=== PATIENT | male | born 1955 | race Caucasian/White ===

== ENCOUNTER 2022-04-01 13:59 | Outpatient (RCR) | payer MEDICARE, SELFPAY ==
--- OUTSIDE RECORDS SUMMARY | 2022-03-15 11:08 | XMS_ITS | Continuity of Care Document ---
:1955 Author Care Team Providers Name Role Phone MD Lulu Attending Physician MITCHEL Fuentes Primary Care Physician Chief Complaint and Reason for Visit Chief Complaint Chest Pain Reason for Visit [id number] Health Concerns Concerns See notes for health concerns that were reviewed. Allergies, Adverse Reactions, Alerts No known allergies Social History Smoking Status Status Start Date End Date Date of Observat ion Ex-smoker (finding) February 22 12:09pm Observation Status Observation Response Date of Response Smoker April 03, 2017 2:31 pm Alcohol consumption of more April 03 017 2:31pm than four drinks per week Does not use illicit drugs January 05 020 7:29am History provided by Patient January 18, 2022 1:3 9pm Where do you live? Own home/apt January 18, 2022 1:3 9pm With whom do you live? Spouse January 18, 2022 1:39pm Additional Data Assigned Sex Male Problems Active Problems Medical Problem Onset Date Status Radiation-induced esophagitis Active COPD (chronic obstructive pulmonary Acti ve disease) Pulmonary hypertension Active Aspiration pneumonia Active Esophageal cancer Active Nicotine dependence Active Hypokalemia Active Chest pain Active Inactive/Resolved Problems Medical Problem Onset Date Status Angioedema Resolved HTN (hypertension) Resolved Cataracts, bilateral Resolved Depression with anxiety Resolved CAD (coronary artery disease) Resolved History of myocardial infarction Resolve d Dyslipidemia Resolved Pulmonary nodule Resolved Personal history of colonic polyps Resol tori Emphysema of lung Resolved Esophageal cancer Resolved Adenocarcinoma of esophagus 2021 Resolved History of coronary artery stent Resolve d placement History of hemorrhoidectomy Resolved History of back surgery Resolved History of colonoscopy with Resolved polypectomy Medications Medication Status Dose Units Route Directions Qty Days Start End Ins tructions Date Date Acetaminophen Active 1-2 TAB PO Every 4 February /Hydrocodone Hours as , Bitart needed 2021 (Hydrocodone- 11:30am Acetaminophen ) 5 Mg/325 Mg TAB Antacid/Diphe Active 10 ML SWISH/ Three Times n/Lido SWAL Daily Before Meals as needed Bupropion Hcl Active 75 MG PO Twice A Day January (Bupropion 3rd, Hydrochloride 2021 ) 75 Mg TAB 8:09am Clopidogrel Active 75 MG PO Daily September Bisulfate , (Plavix) 75 2021 Mg TAB 10:30am Cyanocobalami Active 500 MCG PO Daily 100 n (Vitamin B 12) 500 Mcg TAB Fentanyl Active 1 PATCH TD Every 72 01 March (Fentanyl Hours , Patch) 25 2021 Mcg/Hr PATCH 11:28am Fluticasone-U Active 1 AER INH Daily September meclidinium-V , (Trelegy 2021 Ellipta 10:30am 100-62.5-25 Mcg/Inh) 1 Aer AER Ibuprofen Active 400 MG PO Every February (Ibuprofen Hours as , Suspension) needed 2021 100 Mg/5 Ml 11:29am PAUL Magic Active 5 ML SWISH/ Four Times February SWISH A ND SPIT Mouthwash SWAL Daily as January COM POUND IF FIRST PRODUCT NOT COVERED (Lidocaine/Be needed 2021 nadryl/Maalox 2:13pm ) (First-Mouthw xin Blm) Blm PAUL Ondansetron Active 4 MG PO Every 6 18 February Hcl Hours as , (Ondansetron needed 2021 Odt) 4 Mg TAB 1:07pm Pantoprazole Active 40 MG PO Daily Sodium (Pantoprazole Sodium Dr) 40 Mg TAB Pantoprazole Active 40 MG PO Daily February Sodium 7th, (Protonix) 40 2021 Mg TABEC 8:20am Potassium Active 20 MEQ PO Three Times February kasia ce tablet in plastic med cup and add 2 tsp (10-15ml) of Chloride A Day , water and a llow tablet to melt. Mix in pudding, yogurt, 2021 mashed potatoe s, ice cream. Do NOT crush 12:13pm Rosuvastatin Active 40 MG PO Bedtime September Calcium 2021 10:29am Sennosides-Do Active 1 TAB PO Twice A Day 60 January cusate Sodium as needed , (Stool 2021 Softener/Laxa 8:09am tive 50-8.6 Mg) 1 Tab TAB Accupril Disconti March 2:07pm Acetaminophen Disconti 1-2 TAB PO Every January /Hydrocodone nued Hours as , , Bitart needed 2021 2021 (Hydrocodone- 7:05am 10:41a Acetaminophen m ) 5 Mg/325 Mg TAB Acetaminophen Disconti 1-2 TAB PO Every January /Hydrocodone nued Hours as , Bitart needed 2021 (Hydrocodone- 7:04am Acetaminophen ) 5 Mg/325 Mg TAB Acetaminophen Disconti Unknow PO Every December /Hydrocodone nued n Dose Hours as , Bitart needed 2021 (Hydrocodone- 3:08pm Acetaminophen ) Unknown Strength TAB Aspirin Disconti 81 MG PO Daily January 8:27am Bupropion Hcl Disconti 150 MG PO Twice A Day December (Bupropion nued 7th, 3rd, Hcl Xl (2021 Hr)) 150 Mg 9:57am 8:09am TABCR Bupropion Hcl Disconti 150 MG PO Daily November (Bupropion nued 3rd, 7th, Hcl Xl (2021 Hr)) 150 Mg 9:35am 9:57am TABCR Carica Papaya Disconti 1 OR As Needed December (Papaya) CHW ed 2021 3:08pm Cefuroxime Disconti 250 MG PO Twice A Day January Axetil nued , , 2021 2021 10:56am 7:04am Cholesterol Disconti March 2:07pm Clopidogrel Disconti 75 MG PO Daily Septemberuar Bisulfate nued , y (Plavix) 2021, Mg TAB 8:34am 2021 10:30a m Clopidogrel Disconti 75 MG PO Daily Sepuar Bisulfate nued r , y (Plavix) 2020 17, Mg TAB 1:28pm 2021 8:34am Clopidogrel Disconti 75 MG PO Daily April Bisulfate nued , er (Plavix) 75 2021 06, Mg TAB 6:39pm 2020 1:28pm Clopidogrel Disconti 75 MG PO Daily April Bisulfate nu, (Plavix) 75 2020 Mg TAB 6:39pm Fentanyl Disconti 1 PATCH TD Every 72 February (Fentanyl nued Hours 23rd, Patch) 50 2021 Mcg/Hr PATCH 11:28a m Fentanyl Disconti 1 PATCH TD Every 72 01 March (Fentanyl nued Hours 9, Patch) 75 2021 Mcg/Hr PATCH 11:30a m Fentanyl Disconti 1 PATCH TD Every 72 January (Fentanyl nued Hours 25th, 25th, Patch) 50 2021 2021 Mcg/Hr PATCH 8:13am 10:41a m Fentanyl Disconti 1 PATCH TD Every 72 January (Fentanyl nued Hours 12th, 25th, Patch) 75 2021 2021 Mcg/Hr PATCH 8:26am 8:12am Fentanyl Disconti 1 PATCH TD Every 72 January (Fentanyl nued Hours 4th, 24th, Patch) 100 2021 2021 Mcg/Hr PATCH 7:03pm 7:04am Fentanyl Disconti 1 PATCH TD Every 72 December (Fentanyl nued Hours , 29th, Patch) 12 2021 2021 Mcg/Hr TDSY 4:06pm 3:08pm Fentanyl Disconti 1 PATCH TD Every 72 December (Fentanyl nued Hours , , Patch) 2021 Mcg/Hr TDSY 12:49pm 4:05pm Fluticasone-U Disconti 1 AER INH Daily September meclidinium-V nued , y vikram (legy 2021, Ellipta 8:34am 2021 100-62.5-25 10:30a Mcg/Inh) 1 m Aer AER Fluticasone-U Disconti 1 AER INH Daily April meclidinium-V nued , y vikram (legy 2020, Ellipta 6:12pm 2021 100-62.5-25 8:34am Mcg/Inh) 1 Aer AER Fluticasone-U Disconti 1 AER INH Daily April meclidinium-V nued y , , vikram ([facility] 2020 2020 Ellipta 4:43pm 4:16pm 100-62.5-25 Mcg/Inh) 1 Aer AER Fluticasone-U Disconti 1 AER INH Daily March meclidinium-V nued 9, y vikram (2019, Ellipta 8:31am 2020 100-62.5-25 12:11p Mcg/Inh) 1 m Aer AER Fluticasone-U Disconti 1 AER INH Daily December meclidinium-V nued 16, 9, vikram (2019 Ellipta 3:30pm 8:31am 100-62.5-25 Mcg/Inh) 1 Aer AER Hydroxyzine Disconti 25 MG PO Every 4 January Pamoate nued Hours as 3rd, , needed 2021 2021 8:09am 10:41a m Ibuprofen Disconti 400 MG PO Every 6 January (Ibuprofen nued Hours as 24th, 3rd, Suspension) needed 2021 2021 100 Mg/5 Ml 10:55am 11:29a PAUL m Ibuprofen Disconti 400 MG PO Every 6 January (Ibuprofen nued Hours as 3rd, 24th, Suspension) needed 2021 2021 100 Mg/5 Ml 8:09am 10:55a PAUL m Ibuprofen Disconti 600 MG PO Every 6 19 January nued Hours as 29, needed 2021 3:08pm Influenza Disconti 0.7 ML [facility] [address] [facility] [facility], er Split High 2020 8th, (Fluzone 1:31pm 2020 High-Dose Pf 1:38pm 2020 0.7 Ml) 1 Inj INJ Influenza Disconti 0.7 ML IM Once September Virus Vac nued 15th, y Split High 2020 15th, (Fluzone 10:23am 2020 High-Dose Pf 10:2019 0.7 Ml) m 1 Inj INJ Magic Disconti 5 ML SWISH/ Four Times February SWISH AND SPIT Mouthwash nued SWAL Daily as , , JANUARY COM POUND IF FIRST PRODUCT NOT COVERED (Lidocaine/Be needed 2021 2021 nadryl/Maalox 12:12pm 2:13pm ) (First-Mouthw xin Blm) Blm PAUL Magic Disconti 5 ML SWISH/ Four Times January SWISH AND SPIT Mouthwash nued SWAL Daily as , , JANUARY COM POUND IF FIRST PRODUCT NOT COVERED (Lidocaine/Be needed 2021 2021 nadryl/Maalox 8:09am 12:12p ) m (First-Mouthw xin Blm) Blm PAUL Magnesium Disconti 400 MG PO Daily December Oxide nued 2021 3:08pm Morphine Disconti 10 MG PO Every 4 January Sulfate nued Hours as , 9, (Morphine needed 2021 2021 Oral Soln) 10 10:48am 8:27am Mg/5 Ml ML Nicotine Disconti 1 PATCH TD Daily 02 February (Nicotine nued , Transdermal 2021 Syst) 21 10:41a Mg/24 Hr DIS m Nicotine Disconti 1 PATCH TD Daily January (Nicotine nued , , Transdermal 2021 2021 Syst) 21 11:04am 10:41a Mg/24 Hr DIS m Omeprazole Disconti 20 MG PO Daily 19 January nued 2021 3:08pm Ondansetron Disconti 4 MG PO Every 6 September 1 tab by mouth 30-60 minutes before colon prep; then every Hcl nued Hours as 17th, 3rd, 6 hours as needed. (Ondansetron needed 2021 2021 Odt) 4 Mg TAB 8:37am 9:20am Potassium Disconti 25 MEQ OR Daily January mix 1 t ab Bicarbonate nued , , with at least (Klor-Con/Ef) 2021 2021 4 ounc es of 25 Meq TAB 12:00pm 9:34am water. take with food. Potassium Disconti 25 MEQ OR Daily January Bicarbonate nued , , (Klor-Con/Ef) 2021 2021 25 Meq TAB 11:59am 12:00p m Potassium Disconti 20 MEQ PO Twice A Day February p lace tablet in plastic med cup and add 2 tsp (10-15ml) of Chloride nued , , water and a llow tablet to melt. Mix in pudding, yogurt, 2021 2021 mashed potatoe s, ice cream. Do NOT crush 10:15am 12:13p m Potassium Disconti 20 MEQ PO Daily January place t ablet in plastic med cup and add 2 tsp (10-15ml) of Chloride nued , , water and a llow tablet to melt. Mix in pudding, yogurt, 2021 2021 mashed potatoe s, ice cream. Do NOT crush 4:14pm 10:15a m Potassium Disconti 20 MEQ PO Daily January place t ablet in plastic med cup and add 2 tsp (10-15ml) of Chloride nued , water and a llow tablet to melt. Mix in pudding, yogurt, 2021 2021 mashed potatoe s, ice cream. Do NOT crush 9:34am 4:14pm Prednisone Disconti 40 MG PO Daily 6 March nued , 2016 10:55am 2:07pm Prochlorperaz Disconti 10 MG PO Every 4-6 November PRN ine Maleate nued Hours as 7th, 3rd, Nause a/vomiti needed for 2021 2021 ng Nausea/Vomi 2:36pm 11:18a ting m Prochlorperaz Disconti 10 MG PO Every 4-6 November PRN ine Maleate nued Hours as 3rd, 7th, Nause a/vomiti needed for 2021 2021 ng Nausea/Vomi 1:26pm 2:36pm ting Quinapril Hcl Disconti 20 MG PO Bedtime September (Quinapril nued 24, , Hydrochloride 2021 2021 ) 20 Mg TAB 10:30am 11:29a m Quinapril Hcl Disconti 20 MG PO Bedtime September r (Quinapril nued , y Hydrochloride 2021, ) 20 Mg TAB 8:34am 2021 10:30a m Rosuvastatin Disconti 40 MG PO Bedtime Septemberr Calcium nued , y 2021, 8:34am 2021 10:29a m Simvastatin Disconti 80 MG PO Bedtime nued y 2020 11:56a m Immunizations Immunization Event Date Not Given Dose T[employer] Lot Vac cine Reason Number Number Informatio n Statement (VIS) Deta il Influenza September 22 SANOFI [id number] 2020 Influenza August 23 SANOFI [id number] 2020 Tetanus/Diptheri July 23 a 2014 Tdap December 18 (adolescent/adul 2005 t) Procedures Procedure Date Performed Status PET IMAGE W/CT SKULL-THIGH March 14, 2022 completed Positron emission tomography March 14, 2022 active from base of cranium to mid-thigh Relevant Diagnostic Tests and/or Laboratory Data Laboratory Results Test Date/Time Result Interpretation Reference Result Comment Performing Range Site White Blood February 28, 7.27 5.00-10.00 [facility] Count 2021 [address] [facility] 10:36am [place] [address] Red Blood Count February 28, 3.22 4.32-5.72 [facility] 2021 [address] [facility] 10:36am [facility] [address] Hemoglobin February 28, 11.5 13.5-17.5 [facility] 2021 [address] [facility] 10:36am [place] [address] Hematocrit February 28, 34.2 38.8-50.0 [facility] 2021 [address] [facility] 10:36am [place] [address] Mean February 28, 106 81-95 [facility] Corpuscular 2021 [address] [facility] Volume 10:36am [place] [address] Mean February 28, 36 27-34 [facility] Corpuscular 2021 [address] [facility] Hemoglobin 10:36am [facility] [place] [address] Mean February 28, 34 32-36 [facility] Corpuscular 2021 [address] [facility] Hemoglobin 10:36am [facility] [place] [address] Concent Platelet Count February 28, 166 150-450 [facility] 2021 [address] [facility] 10:36am [place] [address] RDW Coefficient February 28, 15.9 11.5-15.3 [facility] of Variation 2021 [address] [facility] 10:36am [place] [address] Neutrophils (%) February 28, 67.9 50.0-70.0 [facility] (Auto) 2021 [address] [facility] 10:36am [place] [address] Lymphocytes (%) February 28, 22.3 25.0-45.0 [facility] (Auto) 2021 [address] [facility] 10:36am [place] [address] Monocytes (%) February 28, 9.1 0.00-11.0 [facility] (Auto) 2021 [address] [facility] 10:36am [place] [address] Eosinophils (%) February 28, 0.3 0.0-7.0 [facility] (Auto) 2021 [address] [facility] 10:36am [place] [address] Basophils (%) February 28, 0.1 0.0-3.0 [facility] (Auto) 2021 [address] [facility] 10:36am [place] [address] Immature February 28, 0.3 [facility] Granulocyte % 2021 1999 [facility] (Auto) 10:36am [place] [address] Neutrophils # February 28, 4.94 1.70-7.00 [facility] (Auto) 2021 [address] [facility] 10:36am [place] [address] Lymphocytes # February 28, 1.62 0.90-2.90 [facility] (Auto) 2021 [address] [facility] 10:36am [place] [address] Monocytes # February 28, 0.66 0.30-0.90 [facility] (Auto) 2021 [address] [facility] 10:36am [place] [address] Eosinophils # February 28, 0.02 0.00-0.50 [facility] (Auto) 2021 [address] [facility] 10:36am [place] [address] Basophils # February 28, 0.01 0.00-0.20 [facility] (Auto) 2021 [address] [facility] 10:36am [place] [address] Immature February 28, 0.02 [facility] Granulocyte # 2021 1999 [facility] (Auto) 10:36am [place] [address] Random Glucose March 11, 94 60-115 [facility] 2021 [address] [facility] 10:35am [place] [address] Blood Urea March 11, 7 7-30 [facility] Nitrogen 2021 [address] [facility] 10:35am [place] [address] Creatinine March 11, 0.4 0.5-1.5 [facility] 2021 [address] [facility] 10:35am [place] [address] Estimated March 11, 115.499 [facility] Creatinine 2021 1999 [facility] Clearance 10:35am [place] [address] Sodium Level March 11, 139 135-149 [facility] 2021 [address] [facility] 10:35am [place] [address] Potassium Level March 11, 4.0 3.6-5.1 [facility] 2021 [address] [facility] 10:35am [place] [address] Chloride Level March 11, 103 96-114 [facility] 2021 [address] [facility] 10:35am [facility] [address] Carbon Dioxide March 11, 20-32 [facility] Level 2021 [address] [facility] 10:35am [place] [address] Calcium Level March 11, 8.2 8.4-10.6 [facility] 2021 [address] [facility] 10:35am [facility] [address] Total Protein February 28, 5.9 6.0-8.3 The use of [facility] 2021 Eltrombopag, a [address] [facility] 10:36am [facility] [place] [address] stimulant used to treat thrombocytopenia and aplastic anemia, interferes with this measurement of total protein. A 5% bias has been observed. Albumin February 28, 3.2 3.3-5.0 [facility] 2021 [address] [facility] 10:36am [place] [address] Total Bilirubin February 28, 0.5 0.1-1.5 [facility] 2021 [address] [facility] 10:36am [place] [address] Aspartate Amino February 28 12-35 [facility] Transf 2021 [address] [facility] (AST/SGOT) 10:36am [place] [address] Alanine February 28 4-50 [facility] Aminotransferas 2021 [address] [facility] e (ALT/SGPT) 10:36am [place] [address] Alkaline February 28, 40-150 [facility] Phosphatase 2021 [address] [facility] 10:36am [place] [address] Vital Signs Vital Reading Result Reference Range Collection Date/ Time Height 66.500 [in_i] February 22, 2022 1 0:55am Height 168.91 cm February 22, 2022 1 0:55am Weight 98.00 [lb_av] February 22, 2022 1 0:55am Weight 44.179220 kg February 22, 2022 1 0:55am Body Temperature 97.6 [degF] February 22, 2022 10:55am Body Temperature 36.44 Thea February 22, 2022 10:55am BP Systolic 106 mm[Hg] February 22, 2022 1 0:55am BP Diastolic 55 mm[Hg] February 22, 2022 1 0:55am Heart Rate 95 /min February 22, 2022 1 0:55am Respiratory rate 14 /min February 22, 2022 10:55am Body surface area 1.49 m2 February 22, 2022 10:55am BMI (Body Mass Index) 15.6 kg/m2 February 22, 2022 10:55am Advance Directives Advance Directive Response Recorded Date/Time Has patient completed a Yes February 22, 2022 1 2:09pm Health Care Directive? Insurance Providers Guarantor Duy Cohen Address [facility] [address] [place] [address] Contact Info. Home Phone: Payer Policy Id Coverage Id Subscriber's Subscriber Id Effective E xpiration Name Date Date Blue [id number] Duy Cohen Medicare Ppo [id number] Encounters Encounter Location(s) Arrival/Admit Date Discharge/Depart Date Provider(s) Registered [place] March 14, 2022 Marci Lawson MD [facility] 2:52pm Registered [place] March 11, 2022 Marci Lawson MD [facility] 7:12am Registered [facility] February 22, 2022 [facility] 11:00am [place] Office Visit [place] February 22, 2022 [facility] 11:[facility]am [place] Recent Diagnosis Onset Date Esophageal cancer Radiation-induced esophagitis Hypoxia COPD (chronic obstructive pulmonary disease) HTN (hypertension) Functional Status Observation Response Date Recorded Functional Status Independent January 23, 2022 4:45pm Mental Status Observation Response Date Recorded Cognitive Status Alert January 23, 2022 4:45pm Oriented January 23, 2022 4:45pm Assessments Reviewed concerns and medications. I recommend we stop blood pressure medicaion as his blood pressure is low. He is fatigued and has hypokalemia. He is following cancer infusion center. Ibuprofen and hydrocodone refilled. Referral for home health for oxygen placed. We will need to fax records from the hospital for coverage for oxygen. He will keep me updated with his blood pressure readings next week. EP level 4 Plan of Treatment Future Tests Future scheduled test information is unavailable Pending Tests Pending diagnostic test information is unavailable Future Visits Future appointment information is unavailable Referrals to Other Providers Reason for Referral Start Provider Provider Contact Provider Address Referral Date Information Christian Fuentes Work Phone: DEMIAN RODRIGUEZ [place] [address] [place] [phone] Future Procedures Future procedure information is unavailable Future Medications Future medication information is unavailable Patient Instructions Attached Discharge Info Bupropion (By mouth) Hydroxyzine (By mouth) Morphine, Rapid Release (By mouth) (Roxa nol) Fentanyl (Absorbed through the skin) (Du ragesic, Ionsys, Novaplus... Lidocaine (Into the mouth) (Xylocaine, F irst-BXN Mouthwash,... Ibuprofen (By injection) (Caldolor, Neop rofen) Aspiration Pneumonia (DC) COPD (Chronic Obstructive Pulmonary Dise ase) (DC) Esophagitis (AC)
[2022-04-01 14:29] LABS: Basophils Absolute Auto 0.01 K/uL (0.00-0.30); Basophils Percent Auto 0.1 % (0.0-3.0); Eosinophils Absolute Auto 0.01 K/uL (0.00-0.50); Eosinophils Percent Auto 0.1 % (0.0-7.0); Hematocrit 38.4 % (37.0-53.0); Hemoglobin* 12.4 gm/dL (13.5-17.5); Immature Granulocytes Abs Auto 0.04 K/uL (0.00-0.30); Lymphocytes Absolute Auto 1.71 K/uL (0.90-2.90); Lymphocytes Percent Auto 23.3 % (20-44); Mean Corpuscular HGB Conc 32 gm/dL (32-36); Mean Corpuscular Hemoglobin 37 pg (26-34); Mean Corpuscular Volume 114 fL (80-100); Monocytes Percent Auto 11.2 % (0.0-11.0); Neutrophils Absolute Auto 4.75 K/uL (1.7-7.0); Neutrophils Percent Auto 64.8 % (42.0-72.0); Platelet Count* 206 K/uL (140-440); RDW Coefficient of Variation % 13.5 % (11.5-15.5); Red Blood Count 3.38 m/uL (4.30-5.90); White Blood Count* 7.34 K/uL (4.50-11.00)
[2022-04-01 14:34] LABS: Slide Review Reflex No
[2022-04-01 14:44] LABS: Albumin* 3.8 g/dL (3.3-5.0); Chloride* 106 mmol/L (96-114); Potassium* 4.3 mmol/L (3.6-5.1); Sodium* 139 mmol/L (135-149)
[2022-04-01 14:46] LABS: Bilirubin Total* 0.2 mg/dL (0.1-1.5); Creatinine* 0.4 mg/dL (0.5-1.5); Est. Creatinine Clearance* 46.68; Estimated Glomerular Filt Rate 119.58
[2022-04-01 14:47] LABS: Alanine Aminotransferase* 11 U/L (4-50); Alkaline Phosphatase* 87 U/L (40-150); Aspartate Amino Transferase* 23 U/L (12-35); Blood Urea Nitrogen* 16 mg/dL (7-30); Carbon Dioxide* 29 mmol/L (20-32); Glucose* 85 mg/dL (60-115); Total Protein* 6.9 g/dL (6.0-8.3)
--- NOTE | 2022-05-01 09:04 | ONC.NURNOTE ---
Addendum entered by Vashti Mixon RN 05/02/22 15:29: Potassium refilled by Payton Collins APRN. Confirmed with [facility] that the received the prescription and updated Ailyn, pt's . Original Note: Patient called to ask for a Potassium refill. Left a note for Dr. Lawson to address tomorrow. Pt aware.
--- NOTE | 2022-05-03 16:34 | ONC.NURNOTE ---
Called in prescription for Klor-con tabs 20 mEq TID #90 to [facility] [place], 0 refills. 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 Ongoing prescription with refills sent via Payton Collins APRN to pt's preferred pharmacy, [facility].
== END 2022-04-21 23:59 | disposition home or self-care (01) ==
LOC: CCIC 13:59
PROVIDERS: Clinical Nurse Specialist; PCP Physician Assistant Medical; Visit Provider Internal Medicine Medical Oncology
DX: C15.5 Malignant neoplasm of lower third of esophagus (principal); K20.80 Other esophagitis without bleeding; T66.XXXA Radiation sickness, unspecified, initial encounter
CPT/HCPCS: 36415; 80053; 85025; 99212; 99214; 99215

== ENCOUNTER 2022-05-16 14:04 | Outpatient (CLI) | payer MEDICARE, SELFPAY | END 2022-05-16 14:05 | disposition home or self-care (01) | LOC: FRMREF 05-20 15:48 | PROVIDERS: PCP Physician Assistant Medical; Visit Provider Physician Assistant Medical | DX: Z79.899 Other long term (current) drug therapy (principal); C15.9 Malignant neoplasm of esophagus, unspecified; F51.01 Primary insomnia | CPT/HCPCS: 80048 ==

== ENCOUNTER 2022-06-20 13:05 | Outpatient (CLI) | payer MEDICARE, SELFPAY ==
--- NOTE | 2022-06-20 13:15 | CRLHL7_ITS ---
For Patients: As a result of the 21st Century Cures Act, medical imaging exams and procedure reports are released immediately into your electronic medical record. You may view this report before your referring provider. If you have questions, please contact your health care provider. EXAM: PET-CT SKULL BASE TO THIGH CLINICAL INFORMATION: 67-yo male with a history of metastatic esophageal carcinoma. Prior definitive chemoradiation completed 01/10/2022. Patient is referred for further characterization/response assessment. TECHNIQUE: Radiopharmaceutical: 12.66 mCi of 18F-FDG Intravenous injection site: Left hand Uptake time: 58 minutes Blood glucose level at the time of injection: 90 mg/dL Field of view: Skull base to mid-thighs Intravenous contrast: Not administered Oral contrast: Not administered CT protocol: The low-dose, free-breathing, noncontrast CT performed as part of this study is designed for the purposes of attenuation correction and lesion localization, and it is neither sufficient, nor it should be substituted for diagnostic purposes. COMPARISON: PET-CT 03/14/2022 FINDINGS: Physiologic background liver standardized uptake value (SUV mean and SUV max) reported for comparison between PET studies: 2.5 and 3.0. Visualized head and neck: Physiologic uptake in the visualized portions of the extraocular muscles, and salivary glands. Heavy carotid calcification. Head and neck lymph nodes: No abnormal uptake. Lungs: A subcentimeter left lower lobe nodule with mild uptake and a bandlike area of nodular uptake in the left upper lobe extending laterally to the pleural surface are new. Otherwise interval decreased size and uptake of bilateral metabolically active upper lobe pulmonary nodules. For example: -new left lower lobe pulmonary nodule with irregular margins, 0.5 cm, SUV max 3.3 (series 202, image 94). -decreased size and uptake lateral right upper lobe nodule, 0.8 cm, SUV max 3.4 (series 2, image 67). Previously 1.2 cm, SUV max 10.9. -decreased size and uptake right upper lobe nodule, 0.4 cm, SUV max 1.4 (series 202, image 77). Previously 0.6 cm, SUV max 8.6. -new left upper lobe nodular density with bandlike uptake extending laterally to the pleural surfaces, 0.7 cm, SUV max 4.4 (series 2, image 61). Thoracic lymph nodes: No new or progressive metabolically active thoracic or axillary lymphadenopathy. Other chest findings: Similar small pericardial fluid. Diffuse coronary vascular and thoracic aortic calcifications. -residual circumferential distal esophageal wall thickening with mildly increased uptake though overall decreased craniocaudal extent, SUV max 7.7 (fused PET-CT image 121). Previously SUV max 6.0. Current craniocaudal extent of uptake in the distal esophagus approximately 6.5 cm. Previously 9.0 cm. Hepatobiliary: No abnormal uptake. Spleen: No abnormal uptake. Pancreas: No abnormal uptake. Adrenals: No abnormal right adrenal uptake. Mild increased left adrenal uptake does not exceed physiologic liver, SUV max 2.6. Nonspecific. Kidneys and bladder: No abnormal uptake. Physiologically excreted tracer activity within the renal collecting system and urinary bladder. Bowel and peritoneum: No suspicious bowel uptake or abnormality. Colonic diverticulosis without inflammatory change. Pelvic organs: No abnormal uptake. Mild prostate enlargement. Abdominopelvic lymph nodes: No hypermetabolic abdominopelvic lymph nodes. Musculoskeletal, soft tissues, skin: Interval increased size of a lytic left hip intertrochanteric lesion with several new skeletal metastases involving the left clavicle, spine and pelvis/sacrum. For example: -new medial left clavicular head lesion, SUV max 8.0. -new right L4 superior articular facet lesion, SUV max 5.3. -new left sacral ala lesion borders the SI joint, SUV max 2.8. -new posterior superior right acetabular lesion, SUV max 2.8. -increased size and uptake of a lytic intertrochanteric left hip lesion with adjacent cortical erosion, SUV max 9.8. Previously 3.4. -relative photopenia within the lower thoracic and upper lumbar spine is most consistent with fatty marrow replacement in the setting of prior radiation therapy. -posttraumatic change with mild uptake involves the adjacent right anterior 8th and 9th ribs. Other: Diffuse aortoiliac atherosclerotic vascular calcifications. IMPRESSION: 1. Residual distal esophageal wall thickening with mildly increased uptake and overall decrease craniocaudal extent is considered indeterminate, possibly secondary to post therapy effects. Residual viable disease not entirely excluded. No progressive or new metabolically active mediastinal lymphadenopathy. 2. New left lower lobe tracer avid pulmonary nodule and a nodular area of bandlike uptake in the left upper lobe compared to prior. Otherwise decreased size and uptake of bilateral small upper lobe pulmonary metastatic nodules. 3. Increased size and uptake of a lytic left hip metastases with several new tracer avid metastatic lesions in the left clavicle, spine and pelvis/sacrum. 4. No distant sites of tracer at disease in the neck, solid organs of the abdomen or abdominopelvic lymph nodes. 5. Other nonacute findings as detailed in the body of the report. Dictated by Shahzad Meek MD @ 06/26/2022 8:47:56 PM (Electronically Signed)
== END 2022-06-20 13:06 | disposition home or self-care (01) ==
LOC: RAD 13:06
PROVIDERS: PCP Physician Assistant Medical; Visit Provider Internal Medicine Medical Oncology
DX: C15.5 Malignant neoplasm of lower third of esophagus (principal); R91.8 Other nonspecific abnormal finding of lung field
CPT/HCPCS: 78815; A9552

== ENCOUNTER 2022-07-01 11:39 | Outpatient (CLI) | payer MEDICARE, SELFPAY ==
--- NOTE | 2022-07-01 11:30 | CRLHL7_ITS ---
For Patients: As a result of the Cures Act, medical imaging exams and procedure reports are released immediately into your electronic medical record. You may view this report before your referring provider. If you have questions, please contact your health care provider. Indication: ASSESS FOR LYTIC LESION IN LEFT FEMORAL NECK Technique: AP pelvis and two views left hip, three views total Comparison: CT PET 06/20/2022 Findings: Lytic lesion in the anterior proximal left femur better visualized on the CT PET examination. No pathologic fracture. Dense vascular calcifications. Impression: 14 millimeter lytic lesion proximal left femur. Dictated by Rolan Flores MD @ 07/01/2022 12:35:11 PM (Electronically Signed)
== END 2022-07-01 11:40 | disposition home or self-care (01) ==
LOC: RAD 11:41
PROVIDERS: PCP Physician Assistant Medical; Visit Provider Internal Medicine Medical Oncology
DX: M21.952 Unspecified acquired deformity of left thigh (principal)
CPT/HCPCS: 73502

== ENCOUNTER 2022-07-11 12:07 | Outpatient (CLI) | payer MEDICARE, SELFPAY ==
[2022-07-11 21:50] LABS: Albumin* 4.4 g/dL (3.3-5.0)
[2022-07-11 21:51] LABS: Chloride* 99 mmol/L (96-114); Potassium* 4.9 mmol/L (3.6-5.1); Sodium* 139 mmol/L (135-149)
[2022-07-11 21:53] LABS: Alkaline Phosphatase* 96 U/L (40-150); Aspartate Amino Transferase* 25 U/L (12-35); Bilirubin Total* 0.5 mg/dL (0.1-1.5); Carbon Dioxide* 32 mmol/L (20-32); Creatinine* 0.4 mg/dL (0.5-1.5); Estimated Glomerular Filt Rate 120 ml/min; Total Protein* 7.5 g/dL (6.0-8.3)
[2022-07-11 21:54] LABS: Alanine Aminotransferase* 12 U/L (4-50); Blood Urea Nitrogen* 23 mg/dL (7-30); Calcium* 10.3 mg/dL (8.4-10.6); Glucose* 97 mg/dL (60-115); Magnesium* 2.1 mg/dL (1.5-2.6); Phosphorus* 4.8 mg/dL (2.5-4.5)
[2022-07-11 22:12] LABS: Vitamin D 25 Hydroxy* 26 ng/mL (30-80)
[2022-07-11 22:45] LABS: Vitamin B12* 436 pg/mL (243-894)
[2022-07-13 13:16] LABS: Folate, Serum 14.2 ng/mL (>=5.9)
== END 2022-07-11 12:08 | disposition home or self-care (01) ==
PROVIDERS: PCP Physician Assistant Medical; Visit Provider Family Medicine
DX: Z01.818 Encounter for other preprocedural examination (principal); E46 Unspecified protein-calorie malnutrition; E87.6 Hypokalemia; I10 Essential (primary) hypertension; D64.9 Anemia, unspecified; F32.A Depression, unspecified; M89.9 Disorder of bone, unspecified
CPT/HCPCS: 80053; 82306; 82607; 82746; 83735; 84100; 84443

== ENCOUNTER 2022-07-12 08:26 | Outpatient (CLI) | payer MEDICARE, SELFPAY ==
--- NOTE | 2022-07-12 09:23 | W.ANESCHARGE ---
Anesthesia Charges Start Date/Time Anesthesia Start Date: 07/12/22 Anesthesia Start Time: 09:00 Stop Date/Time Anesthesia Stop Date: 07/12/22 Anesthesia Stop Time: 09:18 Summary Emergency: No
== END 2022-07-12 08:27 | disposition home or self-care (01) ==
LOC: OP CLINIC 08:26
PROVIDERS: PCP Physician Assistant Medical; Visit Provider Internal Medicine
DX: D49.0 Neoplasm of unspecified behavior of digestive system (principal); K22.2 Esophageal obstruction
CPT/HCPCS: 00813; 43200; J2704; J3490

== ENCOUNTER 2022-08-28 14:30 | Outpatient (CLI) | payer MEDICARE, SELFPAY ==
[2022-08-28 22:17] LABS: Albumin* 4.2 g/dL (3.3-5.0)
[2022-08-28 22:20] LABS: Alkaline Phosphatase* 99 U/L (40-150); Aspartate Amino Transferase* 24 U/L (12-35); Bilirubin Direct* 0.2 mg/dL (0.0-0.5); Bilirubin Total* 0.2 mg/dL (0.1-1.5)
[2022-08-28 22:21] LABS: Alanine Aminotransferase* 18 U/L (4-50)
== END 2022-08-28 14:31 | disposition home or self-care (01) ==
PROVIDERS: PCP Physician Assistant Medical; Visit Provider Family Medicine
DX: Z01.818 Encounter for other preprocedural examination (principal); D64.9 Anemia, unspecified; E46 Unspecified protein-calorie malnutrition; E87.6 Hypokalemia; I10 Essential (primary) hypertension
CPT/HCPCS: 80076

== ENCOUNTER 2022-08-29 06:50 | Day surgery (SDC) | payer MEDICARE, SELFPAY ==
[2022-08-29 07:05] VITALS: BMI 17.7
[2022-08-29 07:12] VITALS: BP 119/77; PULSE 78; RESP 16; TEMP 36.8; O2SAT 97
[2022-08-29] MEDS: LACTATED RINGERS 1000 ML 1,000 ML 100 ML IV (07:20)
[2022-08-29] MEDS: SODIUM CHLORIDE 0.9 % (FLUSH) 10 ML SYRINGE IVF (07:25)
--- NOTE | 2022-08-29 07:48 | CRLHL7_ITS ---
For Patients: As a result of the Century Cures Act, medical imaging exams and procedure reports are released immediately into your electronic medical record. You may view this report before your referring provider. If you have questions, please contact your health care provider. Indication: PORT CATH PLACEMENT Technique: One fluoroscopic image of the chest. Fluoroscopic time 36.1 seconds. IMPRESSION: Fluoroscopic guidance for Port-A-Cath placement. Dictated by Rolan Flores MD @ 08/29/2022 10:45:22 AM (Electronically Signed)
[2022-08-29] MEDS: LIDOCAINE 1 % PF 30 ML INJECTION (08:22)
[2022-08-29] MEDS: BUPIVACAINE 0.5% 30 ML INJECTION (08:32)
[2022-08-29] MEDS: 0.9% SODIUM CHL 50 ML VIAL INJECTION (08:34)
[2022-08-29] MEDS: HEPARIN 500 UNIT/5 ML SYRINGE IVF (08:45)
--- NOTE | 2022-08-29 08:57 | CRLHL7_ITS ---
For Patients: As a result of the Century Cures Act, medical imaging exams and procedure reports are released immediately into your electronic medical record. You may view this report before your referring provider. If you have questions, please contact your health care provider. INDICATION: s/p port TECHNIQUE: Chest 1 view COMPARISON: None FINDINGS: Right-sided Port-A-Cath is present with the tip located in the inferior SVC. No pneumothorax. No pleural effusion. Vascular calcifications. Hyperinflation. Degenerative changes. IMPRESSION: Port-A-Cath placement. No pneumothorax. Dictated by Rolan Flores MD @ 08/29/2022 10:46:31 AM (Electronically Signed)
[2022-08-29 09:01] VITALS: BP 119/79; PULSE 63; RESP 16; TEMP 36.2; O2SAT 97
--- NOTE | 2022-08-29 09:02 | P.GSOP_ITS ---
Operative Note Date of procedure: 08/29/22 Type of Procedure: Right IJ port Placement with ultrasound and fluoroscopic guidance Procedure Description: After discussing the risks and benefits of the procedure, the patient signed informed consent.? The operative site was marked and the patient was brought to the operating room and placed on the operating table in supine position.? Care was taken to pad the patient's pressure points.?? The patient was then given sed ation by anesthesia.?? The operative site was then prepped and draped in the usual sterile fashion.? A time-out was then performed. The patient's right internal jugular vein was visualized using ultrasound. Local anesthetic was injected into the skin overlying the vein. This was accessed percutaneously using ultrasound guidance. Using Seldinger technique, a guidewire was threaded through the needle. A skin bay was made around the wire. Next, local anesthetic was injected into the skin below the clavicle and along the proposed tract to the neck incision. A skin incision was then made with a 15 blade and a pocket created in the subcutaneous tissue with cautery. A tunneler was then used to thread the catheter from the chest wall pocket to the neck incision. Once this was done fluoroscopy was brought into the field. Over the wire the tract was dilated using fluoroscopy. The wire and the dilator were then removed leaving the sheath in the vein. Through this, the catheter was threaded. Using fluoroscopy, the catheter was positioned into the distal SVC. The catheter was noted to flush and aspirate easily. The catheter was then connected to the port. The port was placed in the pocket and secured in place with 2 0 Prolene sutures. It was noted to flush and aspirate easily. This was then locked with heparinized saline. The skin was closed with absorbable suture. Glue was then applied. Instrument sponge and needle counts were correct at the end of the case. The patient was woken and taken to the PACU in stable condition. The patient tolerated the procedure well. Findings: Right IJ power port placed in the low SVC Anesthesia: MAC Surgeon: Alisa Alberts MD Estimated blood loss (mL): 5 Condition: stable Disposition: same day
[2022-08-29 09:15] VITALS: BP 140/67; PULSE 56; RESP 16; O2SAT 94
[2022-08-29 09:30] VITALS: BP 136/61; PULSE 55; RESP 16; O2SAT 94
--- NOTE | 2022-08-29 10:14 | W.ANESCHARGE ---
Anesthesia Charges Start Date/Time Anesthesia Start Date: 08/29/22 Anesthesia Start Time: 07:59 Stop Date/Time Anesthesia Stop Date: 08/29/22 Anesthesia Stop Time: 09:06 Summary Emergency: No
--- NOTE | 2022-08-29 12:10 | W.ANESCHARGE ---
Anesthesia Charges Start Date/Time Anesthesia Start Date: 08/29/22 Anesthesia Start Time: 07:59 Stop Date/Time Anesthesia Stop Date: 08/29/22 Anesthesia Stop Time: 09:06 Summary Emergency: No
== END 2022-08-29 10:14 | disposition home or self-care (01) ==
PROVIDERS: PCP Physician Assistant Medical; Visit Provider Surgery
PROC: (CPT 36561; principal; 2022-08-29 08:00)
DX: Z45.2 Encounter for adjustment and management of vascular access device (principal); C15.5 Malignant neoplasm of lower third of esophagus; C79.51 Secondary malignant neoplasm of bone
CPT/HCPCS: 36561; 00532; 71045; 76000; C1769; C1788; J1642; J2001; J2704; J3010; J3490; J7120

== ENCOUNTER 2022-10-16 11:01 | Emergency (ER) | payer MEDICARE, SELFPAY ==
[2022-10-16] VITALS (18 sets, daily range): BP systolic 97–128; BP diastolic 61–104; PULSE 87–130; RESP 24; TEMP 36.8; O2SAT 79–96; BMI 18.4
--- NOTE | 2022-10-16 11:46 | CRLHL7_ITS ---
For Patients: As a result of the Century Cures Act, medical imaging exams and procedure reports are released immediately into your electronic medical record. You may view this report before your referring provider. If you have questions, please contact your health care provider. INDICATION: Hypoxia/tachycardia, history of esophageal cancer. TECHNIQUE: CT chest PE was acquired with 100 cc Omnipaque 350 IV contrast. COMPARISON: None. FINDINGS: Heart and vasculature: Contrast opacification of the pulmonary arterial tree is adequate. No sign of pulmonary embolism. Heart size is normal. Thoracic aorta and pulmonary artery are normal in caliber. Aortic arch and coronary artery calcifications. Lungs and pleura: Emphysema. Redemonstration of scattered pulmonary nodules including 9 millimeter left upper lobe and 7 millimeter right upper lobe nodules, also seen on prior PET CT. Similar bandlike ground-glass nodularity in the left upper lobe, also seen on prior PET-CT. No pleural effusions, pleural thickening, or pneumothorax. Lymph nodes/mediastinum: No mediastinal, hilar, or axillary adenopathy. Similar distal esophageal thickening. Chest wall: No masses. Right chest wall port terminating in the right atrium. Upper abdomen: No acute or significant findings. Bones: Unremarkable for age. IMPRESSION: No pulmonary embolism, as questioned. No focal consolidations. Emphysema. When compared to prior PET-CT, similar distal esophageal thickening and pulmonary nodules, given changes in technique, consistent with known metastases. Recommend continued surveillance per oncologic team. Please note that all CT scans at this facility use dose modulation, iterative reconstruction, and/or weight-based dosing when appropriate to reduce radiation dose to as low as reasonably achievable. Dictated by Leonardo Quarles MD @ 10/16/2022 1:17:43 PM (Electronically Signed)
--- NOTE | 2022-10-16 11:49 | ED.SOB ---
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 This was diagnosed about a year ago. He also has COPD and does have oxygen at home which she has not needed to use over the past 6 months or so. He arrived in infusion clinic today and was noted that he had a heart rate of 130 with hypoxia at 87-88% on room air. He did not seem to recover as quickly when exerting himself with light activity. There is no report of fever. He had has a history of smoking and had quit but now has resumed smoking again. He has undergone chemotherapy and radiation therapy with esophageal stretching to treat his esophageal cancer. He has not had any surgery for this matter. He states that he is taking anticoagulants. His medical record currently shows this to be Plavix. He is sent here for further evaluation, in particular to rule out pulmonary embolism. Related Data Home Medications Medication Instructions Recorded Confirmed cyanocobalamin (vitamin B-12) 500 500 mcg PO DAILY 03/21/22 10/16/22 mcg tablet fluticasone fur. 100 mcg-umeclid 1 inh inhalation DAILY 03/21/22 10/16/22 62.5 mcg-vilant 25 mcg inhalat.powder acetaminophen 160 mg/5 mL oral 320 mg PO QID 07/01/22 10/16/22 elixir clopidogrel 75 mg tablet (Plavix) 75 mg PO QDAY 08/19/22 10/16/22 pantoprazole 40 mg tablet,delayed 40 mg PO QDAY 10/14/22 10/16/22 release lorazepam 0.5 mg tablet 0.5 mg PO Q12H PRN anxiety 10/16/22 10/16/22 Previous Rx's Medication Instructions Recorded rosuvastatin 40 mg tablet 40 mg PO DAILY #90 tabs 08/20/22 ondansetron HCl 8 mg tablet 8 mg PO Q8H PRN nausea #30 tabs 09/02/22 prochlorperazine maleate 10 mg 10 mg PO TID PRN nausea and 09/02/22 tablet (Compazine) vomiting #30 tabs potassium chloride 20 mEq 20 meq PO BID hypokalemia #120 tabs 09/19/22 tablet,extended release(part/cryst) (Klor-Con M) albuterol sulfate 90 mcg/actuation 2 inh inhalation Q4-6H PRN #1 ea 10/16/22 breath activated powder inhaler bupropion HCl 75 mg tablet 75 mg PO BID #180 tabs 10/16/22 methylprednisolone 4 mg tablets in See Rx Instructions PO .COMPLEX 10/16/22 a dose pack (Medrol (Fabricio)) #21 ea Allergies Allergy/AdvReac Type Severity Reaction Status Date / Time No Known Drug Allergies Allergy Verified 10/16/22 11:27 Review of Systems Status of ROS: Reports: 10 or more systems reviewed and unremarkable except as noted in History and below Narrative: Constitutional: No fevers. He has had some recent intended weight gain after stretching his esophagus. Eyes: No discharge. No vision changes. HENT: No congestion, no sore throat, no ear pain. Cardiovascular: No chest pain, no palpitations. Respiratory: No wheezes, no cough. Shortness of breath as described above. Gastrointestinal: No abdominal pain, no vomiting, no diarrhea. Genitourinary: No dysuria, no hematuria. Musculoskeletal: Normal range of motion. Skin: No rashes, no pruritis. Neurological: No dizziness, weakness, sensory change, speech change. Endo/Heme/Allergies: No bruising or bleeding. No polydipsia. Pysch: no suicidality, no anxiety, no insomnia. All other systems reviewed and are negative. [facility] Medical History (Updated 10/16/22 @ 14:11 by Lucio Holm MD) Angioedema Aspiration pneumonia Coronary artery disease History of colonic polyps History of myocardial infarction History of smoking Lung nodule Mild anemia Nicotine dependence Radiation-induced esophagitis Surgical History History of colonoscopy with polypectomy History of coronary artery stent placement History of hemorrhoidectomy History of spinal surgery Family History Mother Diabetes Father Diabetes Social History Narrative: alcohol consumption of more than 4 drinks per week does not use illicit drugs smoker- 1 ppd for 40 years Smoking Status: Current every day smoker What tobacco products do you use: cigarettes Smoking packs per day: 0.5 Smoking cigarettes per day: 10.0 How often do you have a drink containing alcohol: never AUDIT-C Alcohol total score: 0 Non-prescribed substance use: marijuana (any form) Non-prescribed substance use details: smokes marijuana once a day Caffeine: Yes service: No Exam Narrative: Exam Narrative: Constitutional: Well-developed, well-nourished, no acute distress. HEENT: Normocephalic, atraumatic. Neck: Normal range of motion. Nontender. Supple. Heart: Regular. No murmurs. Tachycardia, around 115 beats per minute.. Intact distal pulses. Lungs: Clear to auscultation. No chest discomfort. No wheezes, rhonchi, or rales. Use of accessory muscles for breathing. Increased respiratory rate. Abdomen: Normal bowel sounds. Nontender. No rebound tenderness. Genitalia: Deferred. Back: No midline tenderness. Normal range of motion. Extremities: Normal range of motion. No injury. Skin: Intact. No rash. Warm. No erythema or pallor. Neurologic: No altered sensation. No weakness. Alert and oriented. Psychiatric: No suicidality. No anxiety or depression. No insomnia. Nursing notes and vitals signs are reviewed. Const: Vital Signs, click to edit/add: Vital Signs - 24 hr 10/16/22 11:14 10/16/22 11:27 10/16/22 11:28 Temperature 98.3 F Pulse Rate 121 H 122 H Pulse Rate [Pulse Oximeter] 130 H Respiratory Rate 24 Blood Pressure 109/62 Blood Pressure [Ri ght Upper Arm] 128/104 H Pulse Oximetry 79 L 92 93 Oxygen Delivery Me thod Room Air Oxygen Flow Rate 2 10/16/22 11:30 10/16/22 11:25 10/16/22 12:00 Temperature Pulse Rate 119 H 114 H Pulse Rate [Pulse Oximeter] Respiratory Rate Blood Pressure Blood Pressure [Ri ght Upper Arm] Pulse Oximetry 94 92 93 Oxygen Delivery Me thod Nasal Cannula Nasal Cannula Oxygen Flow Rate 2 2 10/16/22 12:01 10/16/22 12:02 10/16/22 12:30 Temperature Pulse Rate 114 H 113 H 109 H Pulse Rate [Pulse Oximeter] Respiratory Rate Blood Pressure 97/69 Blood Pressure [Ri ght Upper Arm] Pulse Oximetry 94 94 93 Oxygen Delivery Me thod Nasal Cannula Oxygen Flow Rate 2 10/16/22 12:31 10/16/22 12:32 10/16/22 13:00 Temperature Pulse Rate 108 H 107 H 102 H Pulse Rate [Pulse Oximeter] Respiratory Rate Blood Pressure 109/64 Blood Pressure [Ri ght Upper Arm] Pulse Oximetry 94 94 95 Oxygen Delivery Me thod Nasal Cannula Nasal Cannula Oxygen Flow Rate 2 2 10/16/22 13:02 Temperature Pulse Rate 98 Pulse Rate [Pulse Oximeter] Respiratory Rate Blood Pressure 104/63 Blood Pressure [Ri ght Upper Arm] Pulse Oximetry 95 Oxygen Delivery Me thod Nasal Cannula Oxygen Flow Rate 2 Course Vital Signs Vital signs: Initial Vital Signs Temperature 98.3 F 10/16/22 11:14 Temperature Source Temporal Artery Scan 10/16/22 11:14 Pulse Rate 130 H 10/16/22 11:14 Pulse Rhythm 10/16/22 11:14 Pulse Strength 3+ Normal 10/16/22 11:14 Respiratory Rate 24 10/16/22 11:14 Blood Pressure 128/104 H 10/16/22 11:14 Blood Pressure Mean 112 10/16/22 11:14 Blood Pressure Position Supine 10/16/22 11:14 Pulse Oximetry 79 L 10/16/22 11:14 Oxygen Delivery Method 10/16/22 11:14 Vital Signs Temperature 98.3 F 10/16/22 11:14 Pulse Rate 130 H 10/16/22 11:14 Respiratory Rate 24 10/16/22 11:14 Blood Pressure 128/104 H 10/16/22 11:14 Pulse Oximetry 79 L 10/16/22 11:14 Oxygen Delivery Method 10/16/22 11:14 Temperature 98.3 F 10/16/22 11:14 Pulse Rate 98 10/16/22 13:02 Respiratory Rate 24 10/16/22 11:14 Blood Pressure 104/63 10/16/22 13:02 Pulse Oximetry 95 10/16/22 13:02 Oxygen Delivery Method 10/16/22 13:02 Oxygen Flow Rate 2 10/16/22 13:02 MDM - SOB/Dyspnea MDM Narrative Medical decision making narrative: This 67-year-old male comes in with tachycardia and increased shortness of breath. He was sent here from infusing clinic to rule out pulmonary embolism or other cause of these symptoms. An IV was established where a CT scan was completed with contrast. There is no evidence of pulmonary embolism or infiltrate. The patient does have COPD and has been on oxygen in the past. He did quit smoking but recently restarted. More likely this is an exacerbation of his COPD complicated with recurring smoking inhalation. He is taking a steroid inhaler. He is okay to return home as he does have oxygen there that can be used if needed. He received prescription for Medrol Dosepak and albuterol inhaler. I advised him to return if worsening symptoms occur. I encouraged him to stop smoking. Lab Data Labs: Lab Results 10/16/22 10/16/22 10/16/22 Range/Units 11:22 11:32 11:32 WBC 7.71 (4.50-11.00) K/uL RBC 3.87 L (4.30-5.90) m/uL Hgb 13.6 (13.5-17.5) gm/dL Hct 41.0 (37.0-53.0) % MCV 106 H (80-100) fL MCH 35 H (26-34) pg MCHC 33 (32-36) gm/dL RDW Coeff of Luba 13.2 (11.5-15.5) % Plt Count 178 (140-440) K/uL Neut % (Auto) 77.9 H (42.0-72.0) % Lymph % (Auto) 14.3 L (20-44) % [place] % (Auto) 6.5 (0.0-11.0) % Eos % (Auto) 0.3 (0.0-7.0) % Baso % (Auto) 0.1 (0.0-3.0) % Neut # (Auto) 6.00 (1.7-7.0) K/uL Lymph # (Auto) 1.10 (0.90-2.90) K/uL [place] # (Auto) 0.50 (0.00-0.90) K/UL Eos # (Auto) 0.02 (0.00-0.50) K/uL Baso # (Auto) 0.01 (0.00-0.30) K/uL Sodium 140 (135-149) mmol/L Potassium 3.6 (3.6-5.1) mmol/L Chloride 105 (96-114) mmol/L Carbon Dioxide 30 (20-32) mmol/L BUN 18 (7-30) mg/dL Creatinine 0.4 L (0.5-1.5) mg/dL Estimated Creat Clear 52.43 Estimated GFR 120 ml/min Glucose 183 H (60-115) mg/dL Calcium 8.9 (8.4-10.6) mg/dL SARS-CoV-2 (PCR) Negative SARS-CoV-2 (Negative) Influenza Type A (PCR) Negative PCR FLU A (Negative) Influenza Type B (PCR) Negative PCR FLU B (Negative) RSV (PCR) Negative PCR RSV (Negative) POC Troponin I (0.01-0.04) ng/ml 10/16/22 Range/Units 11:47 WBC (4.50-11.00) K/uL RBC (4.30-5.90) m/uL Hgb (13.5-17.5) gm/dL Hct (37.0-53.0) % MCV (80-100) fL MCH (26-34) pg MCHC (32-36) gm/dL RDW Coeff of Luba (11.5-15.5) % Plt Count (140-440) K/uL Neut % (Auto) (42.0-72.0) % Lymph % (Auto) (20-44) % [place] % (Auto) (0.0-11.0) % Eos % (Auto) (0.0-7.0) % Baso % (Auto) (0.0-3.0) % Neut # (Auto) (1.7-7.0) K/uL Lymph # (Auto) (0.90-2.90) K/uL [place] # (Auto) (0.00-0.90) K/UL Eos # (Auto) (0.00-0.50) K/uL Baso # (Auto) (0.00-0.30) K/uL Sodium (135-149) mmol/L Potassium (3.6-5.1) mmol/L Chloride (96-114) mmol/L Carbon Dioxide (20-32) mmol/L BUN (7-30) mg/dL Creatinine (0.5-1.5) mg/dL Estimated Creat Clear Estimated GFR ml/min Glucose (60-115) mg/dL Calcium (8.4-10.6) mg/dL SARS-CoV-2 (PCR) (Negative) Influenza Type A (PCR) (Negative) Influenza Type B (PCR) (Negative) RSV (PCR) (Negative) POC Troponin I 0.01 (0.01-0.04) ng/ml Imaging Data CT scan - chest: Radiologist's impression: No pulmonary embolism, as questioned. No focal consolidations. Emphysema. When compared to prior PET-CT, similar distal esophageal thickening and pulmonary nodules, given changes in technique, consistent with known metastases. Recommend continued surveillance per oncologic team. ECG Data Attestation: I personally reviewed and interpreted this ECG as follows: Interpretation: Sinus tachycardia. Rate is 117 beats per minute. There are no specific ST or T-wave abnormalities. Occasional PVCs. Discharge Plan Discharge Clinical Impression: Esophageal cancer, Metastasis to bone, Acute exacerbation of chronic obstructive pulmonary disease Patient Disposition: Home, Self-Care Condition: Unchanged Additional Instructions: Take medication as needed and indicated. Use home oxygen as needed. Smoking cessation is strongly advised. Return if worsening. Prescriptions: New methylprednisolone [Medrol (Fabricio)] 4 mg tablets,dose pack See Rx Instructions .ROUTE .COMPLEX Qty: 21 0RF Rx Instructions: orally per package directions albuterol sulfate 90 mcg/actuation aerosol powdr breath activated 2 inh inhalation Q4-6H PRNQty: 1 0RF No Action acetaminophen 160 mg/5 mL elixir 320 mg PO QID clopidogrel [Plavix] 75 mg tablet 75 mg PO QDAY ondansetron HCl 8 mg tablet 8 mg PO Q8H PRN (Reason: nausea) Qty: 30 2RF prochlorperazine maleate [Compazine] 10 mg tablet 10 mg PO TID PRN (Reason: nausea and vomiting) Qty: 30 2RF pantoprazole 40 mg tablet,delayed release (DR/EC) 40 mg PO QDAY cyanocobalamin (vitamin B-12) 500 mcg tablet 500 mcg PO DAILY ebbhuckpuki-nrodnwzir-loesucub 100-62.5-25 mcg blister with device 1 inh inhalation DAILY lorazepam 0.5 mg tablet 0.5 mg PO Q12H PRN (Reason: anxiety) Label Comments: TAKE 1 TABLET (0.5 MG TOTAL) BY MOUTH 3 (THREE) TIMES A DAY NEEDED (NAUSEA). rosuvastatin 40 mg tablet 40 mg PO DAILY Qty: 90 0RF Rx Instructions: Due for labs in September. potassium chloride [Klor-Con M20] 20 mEq tablet,ER particles/crystals 20 meq PO BID Qty: 120 0RF Rx Instructions: Take 1 tablet by mouth twice daily for hypokalemia bupropion HCl 75 mg tablet 75 mg PO BID Qty: 180 1RF Follow Up/Referrals: Christian Fuentes PA-C [Primary Care Provider] - Stand Alone Forms: mymission2 Info Instructions
[2022-10-16 11:51] LABS: Troponin, Point-of-Care* 0.01 ng/ml (0.01-0.04)
[2022-10-16 12:07] LABS: Chloride* 105 mmol/L (96-114)
[2022-10-16 12:08] LABS: Potassium* 3.6 mmol/L (3.6-5.1); Sodium* 140 mmol/L (135-149)
[2022-10-16 12:08] LABS: PCR FLU A Negative PCR FLU A (Negative); PCR FLU B Negative PCR FLU B (Negative); PCR RSV Negative PCR RSV (Negative)
[2022-10-16 12:10] LABS: Creatinine* 0.4 mg/dL (0.5-1.5); Est. Creatinine Clearance* 52.43; Estimated Glomerular Filt Rate 120 ml/min
[2022-10-16 12:11] LABS: Blood Urea Nitrogen* 18 mg/dL (7-30); Calcium* 8.9 mg/dL (8.4-10.6); Carbon Dioxide* 30 mmol/L (20-32); Glucose* 183 mg/dL (60-115)
[2022-10-16 12:14] LABS: SARS PCR* Negative SARS-CoV-2 (Negative)
[2022-10-16 12:35] LABS: Basophils Absolute Auto 0.01 K/uL (0.00-0.30); Basophils Percent Auto 0.1 % (0.0-3.0); Eosinophils Absolute Auto 0.02 K/uL (0.00-0.50); Eosinophils Percent Auto 0.3 % (0.0-7.0); Hemoglobin* 13.6 gm/dL (13.5-17.5); Immature Granulocytes Abs Auto 0.07 K/uL (0.00-0.30); Immature Granulocytes Pct Auto 0.9 %; Lymphocytes Percent Auto 14.3 % (20-44); Mean Corpuscular HGB Conc 33 gm/dL (32-36); Mean Corpuscular Hemoglobin 35 pg (26-34); Mean Corpuscular Volume 106 fL (80-100); Monocytes Percent Auto 6.5 % (0.0-11.0); Neutrophils Percent Auto 77.9 % (42.0-72.0); Platelet Count* 178 K/uL (140-440); RDW Coefficient of Variation % 13.2 % (11.5-15.5); Red Blood Count 3.87 m/uL (4.30-5.90); Slide Review Reflex No; White Blood Count* 7.71 K/uL (4.50-11.00)
[2022-10-16] MEDS: HEPARIN 500 UNIT/5 ML SYRINGE IVF (14:32)
== END 2022-10-16 14:35 | disposition home or self-care (01) ==
PROVIDERS: Emergency Provider Emergency Medicine Emergency Medical Services; PCP Physician Assistant Medical
DX: C15.9 Malignant neoplasm of esophagus, unspecified (principal); C79.51 Secondary malignant neoplasm of bone; J44.1 Chronic obstructive pulmonary disease with (acute) exacerbation
CPT/HCPCS: 36415; 71260; 80048; 84484; 85025; 87502; 87634; 87635; 93005; 99285; J1642; Q9967

== ENCOUNTER 2022-11-07 12:34 | Outpatient (CLI) | payer MEDICARE, SELFPAY ==
--- NOTE | 2022-11-07 12:45 | CRLHL7_ITS ---
For Patients: As a result of the 21st Century Cures Act, medical imaging exams and procedure reports are released immediately into your electronic medical record. You may view this report before your referring provider. If you have questions, please contact your health care provider. EXAM: PET-CT SKULL BASE TO THIGH CLINICAL INFORMATION: 67-yo male with history of metastatic esophageal cancer. Prior chemo radiation patient is referred for further characterization. TECHNIQUE: Radiopharmaceutical: 11.59 mCi of 18F-FDG Uptake time: 55 minutes Blood glucose level at the time of injection: 81 mg/dL Field of view: Skull base to mid-thighs CT protocol: The low-dose, free-breathing, noncontrast CT performed as part of this study is designed for the purposes of attenuation correction and lesion localization, and it is neither sufficient, nor it should be substituted for diagnostic purposes. COMPARISON: PET CT 06/20/2022. CT angio chest 10/16/2022 FINDINGS: Physiologic background liver standardized uptake value (SUV mean and SUV max) reported for comparison between PET studies: 2.1 and 2.5. Visualized head and neck: Physiologic uptake in the visualized portions of the brain and salivary glands. Heavy carotid calcifications. Head and neck lymph nodes: No abnormal uptake. Lungs: New small left upper lobe nodule with surrounding ground-glass attenuation, 0.5 cm, SUV max 1.5 (fused PET-CT image 89). Otherwise variable residual uptake within bilateral pulmonary nodules and nodular opacities. No new lower lobe pulmonary nodules with resolved uptake in a medial left lower lobe nodule. For example: -decreased uptake bandlike density left upper lobe, SUV max 1.8 (fused PET-CT image 73). Previously 4.4. -mildly increased uptake ground-glass nodule left upper lobe, SUV max 3.0, previously 0.8. Possibly inflammatory. -decreased uptake within adjacent lateral right upper lobe nodules. Right upper lobe nodule, SUV max 1.0 (fused PET-CT image 78). Previously 3.4. Thoracic lymph nodes: No progressive hypermetabolic mediastinal, hilar or axillary lymph nodes. Variable right perihilar amado uptake, 0.6 cm short axis, SUV max 2.5. Previously 2.8. -linear bandlike uptake along the anterior and left lateral margin of the descending thoracic aorta at the diaphragmatic hiatus could potentially represent uptake within the diaphragm or adjacent lymph nodes. For example: Focal uptake anterior margin descending thoracic aorta near the diaphragm, not measurable, SUV max 4.3 (fused PET-CT image 148). Focal uptake left lateral margin upper abdominal thoracic aorta within or along the diaphragm, not measurable, SUV max 4.6 (fused PET-CT image 155). Other chest findings: Right chest port with central catheter tip positioned at the cavoatrial junction. Small pericardial fluid. Diffuse coronary vascular and thoracic aortic calcifications. -residual uptake in the distal esophagus at and proximal to an area of circumferential distal esophageal wall thickening, SUV max 7.7 (fused PET-CT image 132). Previously 7.7. Possibly post treatment related though residual viable disease not excluded. Consider direct visualization. Liver/spleen/pancreas: No abnormal uptake. Adrenals: No abnormal right adrenal uptake. Decreased uptake left adrenal gland compared to prior, SUV max 1.8. Previously 2.6. Kidneys and bladder: Subtle focal uptake posterior cortical margin left kidney without a definite lesion on noncontrast CT consider too small to definitively characterize, SUV max 3.8 (fused PET-CT image 167). Previously no definite lesion or abnormal cortical uptake. Bowel and peritoneum: No suspicious gastric or small bowel uptake. Localized uptake within the proximal ascending colon/cecum demonstrates no definite noncontrast CT abnormality. Possibly reactive/inflammatory or physiologic. No prior uptake in this region on comparison study. Attention on follow-up Diverticulosis of the colon. Pelvic organs: No abnormal uptake. Similar prostate enlargement. Abdominopelvic lymph nodes: No new hypermetabolic mesenteric, retroperitoneal or pelvic/inguinal lymph nodes. Similar small gastrohepatic, cyrus hepatis and precaval lymph nodes with mild uptake. For example: -precaval lymph node, 0.5 cm short axis, SUV max 1.9. Musculoskeletal, soft tissues, skin: Interval left hip fixation with placement of an intramedullary femoral marcello and dynamic compression screw across the hip. No suspicious osseous uptake at the site of prior intertrochanteric left hip metastatic lesion. Increased lytic changes with variable uptake at multiple sites of prior skeletal metastases. For example: -increased lytic change medial left clavicle, SUV max 5.8. Previously 8.3. -increased lytic change right posterior L4 vertebral body and pedicle, SUV max 7.9. Previously 5.3. -lateral left sacral ala lesion, SUV max 2.7. Previously 2.8. Not significantly changed. -right posterior acetabular lytic lesion, SUV max 7.5. Previously 2.8. -degenerative-type uptake in the shoulders and spine. - Other: Post radiation changes in the lower thoracic and lumbar spine with relative photopenia. Diffuse aortoiliac atherosclerotic vascular calcifications. Small left hydrocele. IMPRESSION: 1. Residual moderate uptake within the distal esophagus at and proximal to an area of circumferential distal esophageal wall thickening. Findings considered indeterminate for reactive/inflammatory change in the post treatment setting. Residual viable disease not excluded. Consider direct visualization. No progressive hypermetabolic mediastinal lymphadenopathy. 2. Progressive lytic changes with variable residual uptake at multiple sites of osseous metastatic disease. Interval left hip fixation with no suspicious left hip uptake. 3. New tiny left upper lobe nodule with low level uptake with variable residual activity in small bilateral upper lobe nodules and irregular nodular opacities. No new lower lobe nodules. Consider short-term follow-up dedicated CT imaging of the chest for further characterization. 4. Increased somewhat linear uptake along the anterior and left lateral margin of the descending thoracic aorta at the diaphragmatic hiatus possibly related to uptake in the diaphragm or small periaortic lymph nodes. Attention on follow-up. 5. Focal cortical uptake along the posterior margin left kidney with no definitive noncontrast CT nodule or mass. Consider cross-sectional imaging or directed ultrasound for further evaluation. 6. Other nonacute findings as detailed in the body of the report. Dictated by Shahzad Meek MD @ 11/11/2022 11:09:12 AM (Electronically Signed)
== END 2022-11-07 12:35 | disposition home or self-care (01) ==
LOC: RAD 12:35
PROVIDERS: PCP Physician Assistant Medical; Visit Provider Clinical Nurse Specialist
DX: C15.5 Malignant neoplasm of lower third of esophagus (principal); C79.51 Secondary malignant neoplasm of bone; R91.1 Solitary pulmonary nodule; Z51.11 Encounter for antineoplastic chemotherapy
CPT/HCPCS: 78815; A9552

== ENCOUNTER 2022-12-12 10:24 | Outpatient (CLI) | payer MEDICARE, SELFPAY ==
[2022-12-12 10:48] LABS: Hemoglobin A1C* 5.7 % (0-5.6)
[2022-12-12 14:57] LABS: Albumin* 4.1 g/dL (3.3-5.0); Chloride* 102 mmol/L (96-114)
[2022-12-12 14:58] LABS: Potassium* 4.4 mmol/L (3.6-5.1); Sodium* 136 mmol/L (135-149)
[2022-12-12 15:00] LABS: Aspartate Amino Transferase* 60 U/L (12-35); Bilirubin Total* 0.7 mg/dL (0.1-1.5); Blood Urea Nitrogen* 12 mg/dL (7-30); Carbon Dioxide* 30 mmol/L (20-32); Cholesterol* 203 mg/dL (90-199); Creatinine* 0.5 mg/dL (0.5-1.5); Estimated Glomerular Filt Rate 112 ml/min; Glucose* 108 mg/dL (60-115); Total Protein* 7.8 g/dL (6.0-8.3)
[2022-12-12 15:01] LABS: Alanine Aminotransferase* 32 U/L (4-50); Alkaline Phosphatase* 94 U/L (40-150); Calcium* 8.7 mg/dL (8.4-10.6); HDL Cholesterol* 66 mg/dL (>=40); LDL Cholesterol Calculated 116 mg/dL (<100); Triglycerides* 103 mg/dL (40-149)
== END 2022-12-12 10:25 | disposition home or self-care (01) ==
PROVIDERS: PCP Physician Assistant Medical; Visit Provider Physician Assistant Medical
DX: Z00.00 Encounter for general adult medical examination without abnormal findings (principal); E78.5 Hyperlipidemia, unspecified; I10 Essential (primary) hypertension; R73.9 Hyperglycemia, unspecified; I25.10 Atherosclerotic heart disease of native coronary artery without angina pectoris; E87.6 Hypokalemia; J44.9 Chronic obstructive pulmonary disease, unspecified; F32.A Depression, unspecified
CPT/HCPCS: 80053; 80061; 83036; 84443

== ENCOUNTER 2022-12-23 08:30 | Outpatient (RCR) | payer MEDICARE, SELFPAY ==
[2022-06-27 11:41] LABS: Basophils Absolute Auto 0.02 K/uL (0.00-0.30); Basophils Percent Auto 0.2 % (0.0-3.0); Eosinophils Absolute Auto 0.08 K/uL (0.00-0.50); Eosinophils Percent Auto 0.8 % (0.0-7.0); Hematocrit 39.4 % (37.0-53.0); Hemoglobin* 13.4 gm/dL (13.5-17.5); Immature Granulocytes Abs Auto 0.02 K/uL (0.00-0.30); Mean Corpuscular HGB Conc 34 gm/dL (32-36); Mean Corpuscular Hemoglobin 36 pg (26-34); Mean Corpuscular Volume 106 fL (80-100); Monocytes Percent Auto 10.7 % (0.0-11.0); Neutrophils Absolute Auto 6.86 K/uL (1.7-7.0); Neutrophils Percent Auto 70.1 % (42.0-72.0); Platelet Count* 256 K/uL (140-440); RDW Coefficient of Variation % 11.6 % (11.5-15.5); Red Blood Count 3.72 m/uL (4.30-5.90); White Blood Count* 9.79 K/uL (4.50-11.00)
[2022-06-27 11:51] LABS: Slide Review Reflex No
[2022-06-27 11:56] LABS: Chloride* 102 mmol/L (96-114)
[2022-06-27 11:57] LABS: Albumin* 4.2 g/dL (3.3-5.0); Sodium* 139 mmol/L (135-149)
[2022-06-27 12:00] LABS: Alanine Aminotransferase* 16 U/L (4-50); Alkaline Phosphatase* 99 U/L (40-150); Aspartate Amino Transferase* 24 U/L (12-35); Bilirubin Total* 0.4 mg/dL (0.1-1.5); Blood Urea Nitrogen* 15 mg/dL (7-30); Carbon Dioxide* 29 mmol/L (20-32); Creatinine* 0.4 mg/dL (0.5-1.5); Estimated Glomerular Filt Rate 120 ml/min; Total Protein* 7.8 g/dL (6.0-8.3)
[2022-06-27 12:01] LABS: Calcium* 9.5 mg/dL (8.4-10.6); Glucose* 105 mg/dL (60-115)
--- NOTE | 2022-07-04 13:17 | ONC.NURNOTE ---
Potassium levels reviewed by Jacque [facility], script sent to pt's pharmacy for Klor-Con. Pt instructed to decrease klor Con dose from TID to BID. Pt verbalized understanding.
--- NOTE | 2022-08-22 09:53 | URNOTE ---
Received request for prior auth for Fluorouracil ([id number]), Leucovorin ([id number]), Oxaliplatin (J9263),and Nivolumab(J9299). Per [place] on behalf of of [place], these have been approved from 08/21/2022-09/02/2023. Auth #[id number] Aloxi ([id number] has also been approved from 08/21/2022-09/02/2023. auth #[id number]
[2022-09-02] MEDS: NIVOLUMAB 240 MG, TUBING PRIMARY 1 EACH, In-line 0.2 micron filter set 1 EACH in 0.9 % ... 248 MG IVPB (10:53)
[2022-09-02] MEDS: PALONOSETRON 0.25 MG/5 ML inj IV (11:52)
[2022-09-02] MEDS: 5 % DEXTROSE 250 ML IV (11:52)
[2022-09-02] MEDS: SODIUM CHLORIDE 0.9 % (FLUSH) 10 ML SYRINGE IVF (11:52)
[2022-09-02] MEDS: dexAMETHasone 20 MG in 0.9 % SODIUM CHLORIDE 100 ml 100 ML 408 MG IVPB (11:55)
[2022-09-02] MEDS: OXALIPLATIN 5 MG/ML INJ 115 MG, TUBING PRIMARY 1 EACH in 5 % DEXTROSE 250 ML 250 ML 136.5 MG IV (12:25)
--- NOTE | 2022-09-02 15:49 | ONC.NURNOTE ---
New chemo start teaching done with patient and reviewed medications and treatment schedule discussed side effects, self care at home. after hours management, fever and pump issues will need to come to the ER for triage discussed pump function and reviewed settings, patient practiced turning pump on and off if need to do at home questions addressed about new chemo side effects including cold sensitivity, N/V, peripheral neuropathy patient has chemo binder at home and was advised to review that EMMANUELLE and treatment consents reviewed and signed discussed plan for antiemetics at home, written on calendar and on home antiemetics handout teach back method used for pump instruction and home antiemetics
--- NOTE | 2022-09-03 13:33 | ONC.NURNOTE ---
LM for pt following 1st Folfox/Opdivo to check in regarding side effects. Pt to f/u for C2 in 3 weeks (09/24/22) instead of 2 weeks d/t esophageal dilation procedure at [facility]. Pt has appt with dentis 09/04/22; per Dr. Macias's note, consideration of bisphosphonate tx after dental clearance obtained.
--- NOTE | 2022-09-04 11:11 | ONC.NURNOTE ---
PSDS - 0 lists no concerns or issues
[2022-09-04] MEDS: SODIUM CHLORIDE 0.9 % (FLUSH) 10 ML SYRINGE IVF (11:53)
[2022-09-04] MEDS: HEPARIN 500 UNIT/5 ML SYRINGE IVF (11:53)
[2022-09-30 08:40] VITALS: BP 123/78; PULSE 122; RESP 16; TEMP 36.3; O2SAT 93
[2022-09-30 09:17] LABS: Basophils Absolute Auto 0.02 K/uL (0.00-0.30); Basophils Percent Auto 0.3 % (0.0-3.0); Eosinophils Absolute Auto 0.07 K/uL (0.00-0.50); Hematocrit 44.1 % (37.0-53.0); Hemoglobin* 14.9 gm/dL (13.5-17.5); Immature Granulocytes Abs Auto 0.02 K/uL (0.00-0.30); Immature Granulocytes Pct Auto 0.3 %; Lymphocytes Absolute Auto 1.52 K/uL (0.90-2.90); Lymphocytes Percent Auto 22.5 % (20-44); Mean Corpuscular HGB Conc 34 gm/dL (32-36); Mean Corpuscular Hemoglobin 35 pg (26-34); Mean Corpuscular Volume 103 fL (80-100); Monocytes Percent Auto 10.6 % (0.0-11.0); Neutrophils Absolute Auto 4.42 K/uL (1.7-7.0); Neutrophils Percent Auto 65.3 % (42.0-72.0); Platelet Count* 198 K/uL (140-440); RDW Coefficient of Variation % 12.7 % (11.5-15.5); Red Blood Count 4.27 m/uL (4.30-5.90); White Blood Count* 6.77 K/uL (4.50-11.00)
[2022-09-30 09:23] LABS: Albumin* 4.1 g/dL (3.3-5.0); Chloride* 107 mmol/L (96-114); Potassium* 3.7 mmol/L (3.6-5.1); Sodium* 141 mmol/L (135-149)
[2022-09-30 09:24] LABS: Slide Review Reflex No
[2022-09-30 09:25] LABS: Creatinine* 0.4 mg/dL (0.5-1.5); Estimated Glomerular Filt Rate 120 ml/min
[2022-09-30 09:26] LABS: Alanine Aminotransferase* 19 U/L (4-50); Alkaline Phosphatase* 93 U/L (40-150); Aspartate Amino Transferase* 26 U/L (12-35); Bilirubin Total* 0.4 mg/dL (0.1-1.5); Blood Urea Nitrogen* 15 mg/dL (7-30); Carbon Dioxide* 28 mmol/L (20-32); Glucose* 131 mg/dL (60-115); Total Protein* 7.4 g/dL (6.0-8.3)
[2022-09-30 09:27] LABS: Calcium* 9.5 mg/dL (8.4-10.6)
[2022-09-30] MEDS: NIVOLUMAB 240 MG, TUBING PRIMARY 1 EACH, In-line 0.2 micron filter set 1 EACH in 0.9 % ... 248 MG IVPB (10:16)
[2022-09-30] MEDS: dexAMETHasone 20 MG in 0.9 % SODIUM CHLORIDE 100 ml 100 ML 408 MG IVPB (10:49)
[2022-09-30] MEDS: PALONOSETRON 0.25 MG/5 ML inj IV (10:49)
[2022-09-30] MEDS: OXALIPLATIN 5 MG/ML INJ 115 MG, TUBING PRIMARY 1 EACH in 5 % DEXTROSE 250 ML 250 ML 136.5 MG IV (11:26)
[2022-09-30] MEDS: SODIUM CHLORIDE 0.9 % (FLUSH) 10 ML SYRINGE IVF (15:17)
[2022-09-30] MEDS: 5 % DEXTROSE 250 ML IV (15:17)
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
[2022-10-02 06:44] LABS: Cortisol, Serum 12.7 ug/dL
[2022-10-02 10:38] VITALS: BP 105/59; PULSE 117; RESP 16; TEMP 36.4; O2SAT 90
[2022-10-14 09:45] LABS: Eosinophils Absolute Auto 0.08 K/uL (0.00-0.50); Eosinophils Percent Auto 1.1 % (0.0-7.0); Hematocrit 44.4 % (37.0-53.0); Hemoglobin* 15.2 gm/dL (13.5-17.5); Immature Granulocytes Abs Auto 0.01 K/uL (0.00-0.30); Immature Granulocytes Pct Auto 0.1 %; Lymphocytes Absolute Auto 1.76 K/uL (0.90-2.90); Lymphocytes Percent Auto 24.4 % (20-44); Mean Corpuscular HGB Conc 34 gm/dL (32-36); Mean Corpuscular Hemoglobin 35 pg (26-34); Mean Corpuscular Volume 103 fL (80-100); Monocytes Percent Auto 10.7 % (0.0-11.0); Neutrophils Absolute Auto 4.58 K/uL (1.7-7.0); Neutrophils Percent Auto 63.7 % (42.0-72.0); Platelet Count* 159 K/uL (140-440); RDW Coefficient of Variation % 13.1 % (11.5-15.5); Red Blood Count 4.32 m/uL (4.30-5.90)
[2022-10-14 10:04] LABS: Albumin* 4.3 g/dL (3.3-5.0); Chloride* 107 mmol/L (96-114); Potassium* 3.6 mmol/L (3.6-5.1); Sodium* 141 mmol/L (135-149)
[2022-10-14 10:06] LABS: Creatinine* 0.5 mg/dL (0.5-1.5); Estimated Glomerular Filt Rate 112 ml/min
[2022-10-14 10:07] LABS: Alanine Aminotransferase* 25 U/L (4-50); Alkaline Phosphatase* 100 U/L (40-150); Aspartate Amino Transferase* 31 U/L (12-35); Bilirubin Total* 0.5 mg/dL (0.1-1.5); Blood Urea Nitrogen* 14 mg/dL (7-30); Calcium* 9.6 mg/dL (8.4-10.6); Carbon Dioxide* 29 mmol/L (20-32); Glucose* 149 mg/dL (60-115); Total Protein* 7.9 g/dL (6.0-8.3)
[2022-10-14] MEDS: NIVOLUMAB 240 MG, TUBING PRIMARY 1 EACH, In-line 0.2 micron filter set 1 EACH in 0.9 % ... 248 MG IVPB (11:27)
[2022-10-14] MEDS: SODIUM CHLORIDE 0.9 % (FLUSH) 10 ML SYRINGE IVF (11:27)
[2022-10-14] MEDS: dexAMETHasone 20 MG in 0.9 % SODIUM CHLORIDE 100 ml 100 ML 408 MG IVPB (11:58)
[2022-10-14] MEDS: PALONOSETRON 0.25 MG/5 ML inj IV (11:58)
[2022-10-14] MEDS: OXALIPLATIN 5 MG/ML INJ 115 MG, TUBING PRIMARY 1 EACH in 5 % DEXTROSE 250 ML 250 ML 136.5 MG IV (12:18)
[2022-10-14 19:58] LABS: Slide Review Reflex No
[2022-10-16 03:27] LABS: Cortisol, Serum 14.3 ug/dL
--- NOTE | 2022-10-16 11:05 | ONC.NURNOTE ---
Patient arrived with via wheelchair to have his pump removed and noted his breathing to be worse. VS taken and HR running 130's with O2 Sats 87/88 percent on room air after sitting for 20 minutes. Patient NOT recovering and was noted to have O2 saturations running 94% --10/14. Does sound like alot of congestion which patient isin't able to cough up. Patient is on Immunotherapy called Nivolumab which has been known to cause pneumonitis as well.
[2022-10-16] MEDS: SODIUM CHLORIDE 0.9 % (FLUSH) 10 ML SYRINGE IVF (11:19)
[2022-10-29 10:32] VITALS: BP 103/56; PULSE 102; RESP 16; TEMP 36.9; O2SAT 91
[2022-10-29 10:36] LABS: Basophils Absolute Auto 0.01 K/uL (0.00-0.30); Basophils Percent Auto 0.2 % (0.0-3.0); Eosinophils Absolute Auto 0.02 K/uL (0.00-0.50); Eosinophils Percent Auto 0.3 % (0.0-7.0); Hematocrit 38.9 % (37.0-53.0); Immature Granulocytes Abs Auto 0.01 K/uL (0.00-0.30); Immature Granulocytes Pct Auto 0.2 %; Lymphocytes Percent Auto 15.1 % (20-44); Mean Corpuscular HGB Conc 33 gm/dL (32-36); Mean Corpuscular Hemoglobin 35 pg (26-34); Mean Corpuscular Volume 104 fL (80-100); Monocytes Percent Auto 16.5 % (0.0-11.0); Neutrophils Absolute Auto 4.26 K/uL (1.7-7.0); Neutrophils Percent Auto 67.7 % (42.0-72.0); Platelet Count* 131 K/uL (140-440); RDW Coefficient of Variation % 13.2 % (11.5-15.5); Red Blood Count 3.74 m/uL (4.30-5.90); White Blood Count* 6.29 K/uL (4.50-11.00)
[2022-10-29 10:37] LABS: Slide Review Reflex No
[2022-10-29 10:45] LABS: Albumin* 3.5 g/dL (3.3-5.0); Chloride* 107 mmol/L (96-114); Sodium* 139 mmol/L (135-149)
[2022-10-29 10:48] LABS: Alkaline Phosphatase* 93 U/L (40-150); Aspartate Amino Transferase* 27 U/L (12-35); Bilirubin Total* 0.4 mg/dL (0.1-1.5); Blood Urea Nitrogen* 16 mg/dL (7-30); Carbon Dioxide* 31 mmol/L (20-32); Creatinine* 0.4 mg/dL (0.5-1.5); Estimated Glomerular Filt Rate 120 ml/min; Total Protein* 6.8 g/dL (6.0-8.3)
[2022-10-29 10:49] LABS: Alanine Aminotransferase* 21 U/L (4-50); Calcium* 8.8 mg/dL (8.4-10.6); Glucose* 135 mg/dL (60-115)
--- NOTE | 2022-10-29 10:49 | ONC.NURNOTE ---
Cortes states feeling much better after recently having his esophagus dilated. wt is up. hes able to eat and drink and enjoy food again. states good appetite. resp wnl. heart rate 102. sats 91 ra. no sob. he was in the ER 1 week ago for COPD exh. breating better today. denies elevated temp. Dr. Rosado is going to remove a skin lesion on the back of his head in the future.
[2022-10-29] MEDS: NIVOLUMAB 240 MG, TUBING PRIMARY 1 EACH, In-line 0.2 micron filter set 1 EACH in 0.9 % ... 248 MG IVPB (11:22)
[2022-10-29] MEDS: PALONOSETRON 0.25 MG/5 ML inj IV (11:48)
[2022-10-29] MEDS: dexAMETHasone 20 MG in 0.9 % SODIUM CHLORIDE 100 ml 100 ML 408 MG IVPB (11:48)
[2022-10-29] MEDS: SODIUM CHLORIDE 0.9 % (FLUSH) 10 ML SYRINGE IVF (11:49)
[2022-10-29] MEDS: 5 % DEXTROSE 250 ML IV (11:49)
[2022-10-29] MEDS: OXALIPLATIN 5 MG/ML INJ 115 MG, TUBING PRIMARY 1 EACH in 5 % DEXTROSE 250 ML 250 ML 136.5 MG IV (12:21)
[2022-10-31 11:30] VITALS: BP 110/71; PULSE 87; RESP 22; TEMP 36.6; O2SAT 88
[2022-10-31] MEDS: SODIUM CHLORIDE 0.9 % (FLUSH) 10 ML SYRINGE IVF (12:15)
[2022-10-31] MEDS: HEPARIN 500 UNIT/5 ML SYRINGE IVF (12:15)
--- NOTE | 2022-10-31 13:45 | ONC.NURNOTE ---
Pt here today for CADD pump off. VS show tachycardia, p 110's, RR22, O2 Sats 87-89% RA, with and without mask. Pt notes some SOB, not worse than usual. Reviewed recent VS and notes; these VS are consistent with presumed COPD exacerbation. CTA Chest 10/16/33 r/o PE. Pt has home O2 and will use as needed. Reviewed with Payton Youngblood APRN; consistent with previous VS, no intervention needed. Pt to notify us if symptoms worsen. Reinforced need to f/u with Christian Fuentes, PCP for ongoing mgt COPD.
[2022-10-31 15:03] LABS: Cortisol, Serum 12.2 ug/dL
[2022-11-11 08:45] LABS: Basophils Absolute Auto 0.01 K/uL (0.00-0.30); Basophils Percent Auto 0.2 % (0.0-3.0); Eosinophils Absolute Auto 0.04 K/uL (0.00-0.50); Eosinophils Percent Auto 0.7 % (0.0-7.0); Hematocrit 41.8 % (37.0-53.0); Hemoglobin* 14.3 gm/dL (13.5-17.5); Immature Granulocytes Abs Auto 0.01 K/uL (0.00-0.30); Immature Granulocytes Pct Auto 0.2 %; Lymphocytes Absolute Auto 1.78 K/uL (0.90-2.90); Lymphocytes Percent Auto 29.2 % (20-44); Mean Corpuscular HGB Conc 34 gm/dL (32-36); Mean Corpuscular Hemoglobin 35 pg (26-34); Mean Corpuscular Volume 102 fL (80-100); Monocytes Percent Auto 14.1 % (0.0-11.0); Neutrophils Percent Auto 55.6 % (42.0-72.0); Platelet Count* 106 K/uL (140-440); RDW Coefficient of Variation % 13.8 % (11.5-15.5); Red Blood Count 4.09 m/uL (4.30-5.90)
[2022-11-11 08:52] LABS: Slide Review Reflex No
[2022-11-11 08:59] LABS: Chloride* 105 mmol/L (96-114); Potassium* 3.8 mmol/L (3.6-5.1); Sodium* 138 mmol/L (135-149)
[2022-11-11 09:02] LABS: Alanine Aminotransferase* 27 U/L (4-50); Alkaline Phosphatase* 96 U/L (40-150); Aspartate Amino Transferase* 33 U/L (12-35); Bilirubin Total* 0.6 mg/dL (0.1-1.5); Blood Urea Nitrogen* 11 mg/dL (7-30); Carbon Dioxide* 27 mmol/L (20-32); Creatinine* 0.5 mg/dL (0.5-1.5); Estimated Glomerular Filt Rate 112 ml/min; Glucose* 161 mg/dL (60-115); Total Protein* 7.5 g/dL (6.0-8.3)
[2022-11-11 09:03] LABS: Calcium* 9.4 mg/dL (8.4-10.6)
[2022-11-11] MEDS: NIVOLUMAB 240 MG, TUBING PRIMARY 1 EACH, In-line 0.2 micron filter set 1 EACH in 0.9 % ... 248 MG IVPB (10:47)
[2022-11-11] MEDS: PALONOSETRON 0.25 MG/5 ML inj IV (11:33)
[2022-11-11] MEDS: dexAMETHasone 20 MG in 0.9 % SODIUM CHLORIDE 100 ml 100 ML 408 MG IVPB (11:34)
[2022-11-11] MEDS: OXALIPLATIN 5 MG/ML INJ 115 MG, TUBING PRIMARY 1 EACH in 5 % DEXTROSE 250 ML 250 ML 136.5 MG IV (12:07)
[2022-11-11] MEDS: SODIUM CHLORIDE 0.9 % (FLUSH) 10 ML SYRINGE IVF (13:06)
[2022-11-11] MEDS: 5 % DEXTROSE 250 ML IV (13:06)
[2022-11-12] MEDS: HEPARIN 500 UNIT/5 ML SYRINGE IVF (13:59)
[2022-11-12] MEDS: SODIUM CHLORIDE 0.9 % (FLUSH) 10 ML SYRINGE IVF (13:59)
[2022-11-12 14:00] VITALS: BP 119/80; PULSE 117; RESP 20; TEMP 36.5; O2SAT 92
--- NOTE | 2022-11-13 13:41 | ONC.NURNOTE ---
re dental clearance for Zometa: patient has 4 follow up visits with dentist for fillings Ailyn to follow up with dentist about clearance for Zometa
[2022-11-13 14:59] LABS: Cortisol, Serum 15.4 ug/dL
--- NOTE | 2022-11-21 16:16 | ONC.NURNOTE ---
Addendum entered by Ana Laura Grigsby RN 11/26/22 09:58: Late Entry: Final PET results were reviewed by Dr Macias on 11/11/22 with no new information than what was already discussed with patient during 11/11/[address] Macias This information was communicated by this property underwriter to Junior while here on 11/11/22 Original Note: Patient was asking about referral to XRT to address bone mets - patient without any pain and Dr Macias recommends follow up with XRT if or when there is pain in this area /pt state understanding
[2022-11-25 09:05] VITALS: BP 127/73; PULSE 119; RESP 16; TEMP 36.4; O2SAT 90
[2022-11-25 09:18] LABS: Basophils Absolute Auto 0.01 K/uL (0.00-0.30); Basophils Percent Auto 0.1 % (0.0-3.0); Eosinophils Absolute Auto 0.02 K/uL (0.00-0.50); Eosinophils Percent Auto 0.2 % (0.0-7.0); Hematocrit 40.7 % (37.0-53.0); Hemoglobin* 13.8 gm/dL (13.5-17.5); Immature Granulocytes Abs Auto 0.01 K/uL (0.00-0.30); Immature Granulocytes Pct Auto 0.1 %; Lymphocytes Percent Auto 17.9 % (20-44); Mean Corpuscular HGB Conc 34 gm/dL (32-36); Mean Corpuscular Hemoglobin 35 pg (26-34); Mean Corpuscular Volume 103 fL (80-100); Monocytes Percent Auto 19.4 % (0.0-11.0); Neutrophils Absolute Auto 5.18 K/uL (1.7-7.0); Neutrophils Percent Auto 62.3 % (42.0-72.0); Platelet Count* 162 K/uL (140-440); RDW Coefficient of Variation % 14.2 % (11.5-15.5); Red Blood Count 3.97 m/uL (4.30-5.90); White Blood Count* 8.32 K/uL (4.50-11.00)
[2022-11-25 09:19] LABS: Slide Review Reflex No
[2022-11-25 09:30] LABS: Albumin* 3.9 g/dL (3.3-5.0)
[2022-11-25 09:31] LABS: Chloride* 106 mmol/L (96-114); Sodium* 139 mmol/L (135-149)
[2022-11-25 09:33] LABS: Aspartate Amino Transferase* 28 U/L (12-35); Bilirubin Total* 0.7 mg/dL (0.1-1.5); Carbon Dioxide* 30 mmol/L (20-32); Creatinine* 0.4 mg/dL (0.5-1.5); Estimated Glomerular Filt Rate 120 ml/min
[2022-11-25 09:34] LABS: Alanine Aminotransferase* 22 U/L (4-50); Alkaline Phosphatase* 91 U/L (40-150); Blood Urea Nitrogen* 13 mg/dL (7-30); Calcium* 9.4 mg/dL (8.4-10.6); Glucose* 140 mg/dL (60-115); Total Protein* 7.6 g/dL (6.0-8.3)
[2022-11-25] MEDS: NIVOLUMAB 240 MG, TUBING PRIMARY 1 EACH, In-line 0.2 micron filter set 1 EACH in 0.9 % ... 248 MG IVPB (11:08)
[2022-11-25] MEDS: PALONOSETRON 0.25 MG/5 ML inj IV (11:46)
[2022-11-25] MEDS: dexAMETHasone 20 MG in 0.9 % SODIUM CHLORIDE 100 ml 100 ML 408 MG IVPB (11:46)
[2022-11-25] MEDS: OXALIPLATIN 5 MG/ML INJ 115 MG, TUBING PRIMARY 1 EACH in 5 % DEXTROSE 250 ML 250 ML 136.5 MG IV (12:10)
--- NOTE | 2022-11-25 15:21 | ONC.NURNOTE ---
Pt here for opdivo and folfox. Pt doing well, c/o occasional nose bleeds, this has improved since setting up a humidifier. Pt also states he has had occasional frontal headaches over the past month, per pt the headaches improve when he stays hydrated. Sales And Marketing Assistant informed Dr. Macias of the headaches with no other symptoms and discussed when to start Zometa. Pt has an appt with his dentist on 12/02/21 for cavity fillings, per Dr. Macias okay to start Zometa next cycle. Will continue to monitor headaches, pt instructed to call if the headaches become more frequent. Pt verbalized understanding of plan of care.
[2022-11-26 18:40] LABS: Cortisol, Serum 15.4 ug/dL
[2022-11-27 12:00] VITALS: BP 115/70; PULSE 122; RESP 20; TEMP 36.1; O2SAT 89
[2022-11-27] MEDS: HEPARIN 500 UNIT/5 ML SYRINGE IVF (12:38)
[2022-11-27] MEDS: SODIUM CHLORIDE 0.9 % (FLUSH) 10 ML SYRINGE IVF (12:39)
--- NOTE | 2022-11-27 12:43 | ONC.NURNOTE ---
Rolan states feeling ok. ryne po. no nausea or diarrhea. slightly sob and tachycardia. denies discomfort. sats once hand warm and mask off 89 RA. heart rate 122 and resp 28
--- NOTE | 2022-11-27 12:44 | ONC.NURNOTE ---
Rolan arrived sob and tachy cardia of 129. once resting and taking mask off breathing better at 15. heart rate 120. denies discomfort,chest pain, sob, dizziness, nausea or diarrhea. Rolan does have COPD. his sats at rest 89 RA at rest. states ryne po. Heart sounds reg. LS dimished. no crackles or wheezing heard. enc him to let us know if fever or symptomatic.
--- NOTE | 2022-11-27 14:53 | URNOTE ---
Request received for authorization for Zoledronic Acid ([id number]). Prior authorization is approved from 12/09/2022 to 06/07/2023 by [employer] for [employer] Ref# [id number].
[2022-12-09 09:09] LABS: Basophils Absolute Auto 0.01 K/uL (0.00-0.30); Basophils Percent Auto 0.2 % (0.0-3.0); Eosinophils Absolute Auto 0.01 K/uL (0.00-0.50); Eosinophils Percent Auto 0.2 % (0.0-7.0); Hematocrit 40.3 % (37.0-53.0); Hemoglobin* 13.6 gm/dL (13.5-17.5); Immature Granulocytes Abs Auto 0.01 K/uL (0.00-0.30); Immature Granulocytes Pct Auto 0.2 %; Lymphocytes Percent Auto 17.1 % (20-44); Mean Corpuscular HGB Conc 34 gm/dL (32-36); Mean Corpuscular Hemoglobin 35 pg (26-34); Mean Corpuscular Volume 103 fL (80-100); Monocytes Percent Auto 15.2 % (0.0-11.0); Neutrophils Absolute Auto 4.37 K/uL (1.7-7.0); Neutrophils Percent Auto 67.1 % (42.0-72.0); Platelet Count* 123 K/uL (140-440); RDW Coefficient of Variation % 15.1 % (11.5-15.5); Red Blood Count 3.92 m/uL (4.30-5.90)
[2022-12-09 09:11] VITALS: BP 104/68; PULSE 126; RESP 20; TEMP 36.8; O2SAT 91
[2022-12-09 09:24] LABS: Chloride* 102 mmol/L (96-114); Potassium* 3.9 mmol/L (3.6-5.1); Sodium* 139 mmol/L (135-149)
[2022-12-09 09:26] LABS: Creatinine* 0.5 mg/dL (0.5-1.5); Estimated Glomerular Filt Rate 112 ml/min
[2022-12-09 09:27] LABS: Alanine Aminotransferase* 26 U/L (4-50); Alkaline Phosphatase* 102 U/L (40-150); Aspartate Amino Transferase* 40 U/L (12-35); Bilirubin Total* 0.5 mg/dL (0.1-1.5); Blood Urea Nitrogen* 12 mg/dL (7-30); Calcium* 9.2 mg/dL (8.4-10.6); Carbon Dioxide* 30 mmol/L (20-32); Glucose* 184 mg/dL (60-115); Slide Review Reflex No; Total Protein* 7.5 g/dL (6.0-8.3)
[2022-12-09] MEDS: ZOLEDRONIC ACID 4 MG in 0.9 % SODIUM CHLORIDE 100 ml 100 ML 420 MG IVPB (11:16)
[2022-12-09] MEDS: NIVOLUMAB 240 MG, TUBING PRIMARY 1 EACH, In-line 0.2 micron filter set 1 EACH in 0.9 % ... 248 MG IVPB (11:49)
[2022-12-09] MEDS: PALONOSETRON 0.25 MG/5 ML inj IV (12:21)
[2022-12-09] MEDS: dexAMETHasone 20 MG in 0.9 % SODIUM CHLORIDE 100 ml 100 ML 408 MG IVPB (12:21)
[2022-12-11 14:30] VITALS: BP 96/61; PULSE 121; RESP 18; TEMP 36.9; O2SAT 89
[2022-12-11] MEDS: HEPARIN 500 UNIT/5 ML SYRINGE IVF (15:00)
[2022-12-11] MEDS: SODIUM CHLORIDE 0.9 % (FLUSH) 10 ML SYRINGE IVF (15:00)
--- NOTE | 2022-12-12 12:02 | ONC.NURNOTE ---
PET order and supporting documentation faxed to [facility].
[2022-12-12 14:22] LABS: Lab Add On Test New Spec Needed
--- NOTE | 2022-12-16 14:06 | ONC.NURNOTE ---
Message was left for Dr. Samuels from Genesis Fuentes at [facility] asking if patient could receive his pneumonia vaccines as he is due for them. This was addressed today by Dr. Samuels. Per Dr. Samuels: Okay for non live vaccine. If series contemplated for pneumonia Vaccine, minimal interval should be 8 weeks per CDC. This message was left with [facility] in regards to this question.
[2022-12-23 08:44] VITALS: BP 100/61; PULSE 113; RESP 16; TEMP 36.2; O2SAT 94
[2022-12-23 09:09] LABS: Hematocrit 41.6 % (37.0-53.0); Lymphocytes Percent Auto 22.7 % (20-44); Mean Corpuscular HGB Conc 34 gm/dL (32-36); Mean Corpuscular Hemoglobin 35 pg (26-34); Mean Corpuscular Volume 104 fL (80-100); Neutrophils Percent Auto 53.6 % (42.0-72.0); Platelet Count* 88 K/uL (140-440); Red Blood Count 4.02 m/uL (4.30-5.90); White Blood Count* 4.44 K/uL (4.50-11.00)
[2022-12-23 09:10] LABS: Basophils Percent Auto 0.5 % (0.0-3.0); Eosinophils Percent Auto 0.9 % (0.0-7.0); Monocytes Percent Auto 22.1 % (0.0-11.0); Slide Review Reflex No
[2022-12-23 09:16] LABS: Albumin* 3.9 g/dL (3.3-5.0); Chloride* 105 mmol/L (96-114)
[2022-12-23 09:17] LABS: Potassium* 3.9 mmol/L (3.6-5.1); Sodium* 138 mmol/L (135-149)
[2022-12-23 09:19] LABS: Bilirubin Total* 0.7 mg/dL (0.1-1.5); Creatinine* 0.4 mg/dL (0.5-1.5); Estimated Glomerular Filt Rate 120 ml/min
[2022-12-23 09:20] LABS: Alanine Aminotransferase* 22 U/L (4-50); Alkaline Phosphatase* 93 U/L (40-150); Aspartate Amino Transferase* 33 U/L (12-35); Blood Urea Nitrogen* 10 mg/dL (7-30); Calcium* 8.9 mg/dL (8.4-10.6); Carbon Dioxide* 30 mmol/L (20-32); Glucose* 183 mg/dL (60-115); Total Protein* 7.4 g/dL (6.0-8.3)
--- NOTE | 2022-12-23 10:46 | ONC.NURNOTE ---
Cortes reports this am sometimes feels more sob. states no chest pain, fever. or productive cough. no LE swelling. resp 20 at rest. heart rate 113. sats 94 ra. states eating and drinking well. pt does have copd. ls clear but dimished . pt states using inhalers and o2 prn at night. enc pt to contact primary if no improvement. pts chemo held today due to plts. 88. per Dr. Samuels. pt teaching re bleeding and with low plts. discharged home with . hold treatment till next friday.
[2022-12-25 12:36] LABS: Cortisol, Serum 14.8 ug/dL
== END 2022-12-24 23:59 | disposition home or self-care (01) ==
LOC: CCIC 08:30
PROVIDERS: Clinical Nurse Specialist; Internal Medicine Medical Oncology; PCP Physician Assistant Medical; Referring Provider Physician Assistant Medical; Visit Provider Nurse Practitioner Family
DX: C15.5 Malignant neoplasm of lower third of esophagus (principal); D69.59 Other secondary thrombocytopenia; T45.1X5A Adverse effect of antineoplastic and immunosuppressive drugs, initial encounter
CPT/HCPCS: 36415; 36591; 80053; 82533; 84443; 85025; 86334; 96366; 96368; 96376; 96413; 96415; 96416; 96417; 99202; 99211; 99212; 99214; 99215; J0640; J1100; J1642; J2469; J3489; J7050; J9190; J9263; J9299

== ENCOUNTER 2023-04-28 10:24 | Outpatient (CLI) | payer MEDICARE, SELFPAY ==
--- NOTE | 2023-04-28 11:00 | CRLHL7_ITS ---
For Patients: As a result of the 21st Century Cures Act, medical imaging exams and procedure reports are released immediately into your electronic medical record. You may view this report before your referring provider. If you have questions, please contact your health care provider. Indication: ESOPHAGEAL CANCER FOLLOW UP Technique: Postcontrast CT chest, abdomen and pelvis. 56 cc Isovue 370 intravenous contrast. Please note that all CT scans at this facility use dose modulation, iterative reconstruction, and/or weight-based dosing when appropriate to reduce radiation dose to as low as reasonably achievable. Comparison: CT PET 01/30/2023, 11/07/2022. CT 10/31/2021 Findings: In the chest, diffuse thickening of the distal esophageal mucosa is similar. Mildly prominent right hilar lymph node measuring 1.4 cm, similar to 10/31/2021. Nodule within the medial aspect of the right lower lobe measures 7 millimeters, not definitively previously identified. This is located on series 3, image 60. Stable nodular density within the left upper lobe measuring 5 millimeters, 3/34. Emphysematous changes with right upper lobe bulla. No enlarged mediastinal lymph nodes. Normal left hilum. No enlarged axillary lymph nodes. Atherosclerotic changes. No aneurysm. Visualized thyroid normal. No pulmonary embolism. In the abdomen, sub 5 millimeter hypodensities are present, similar to the 2021 exam. No stigmata of cirrhosis. Layering density in the gallbladder. No biliary obstruction. Adrenal glands normal. Small cystic areas are present at the posterior kidneys, similar to the recent CT PET exam, measuring 1.9 cm on the left and 1.2 cm on the right. Dense atherosclerotic disease. No aneurysm. Pancreas normal. Normal spleen. Subcentimeter upper retroperitoneal lymph nodes are present. In the pelvis, the bladder is normal. Prostate calcifications are present. No enlarged pelvic lymph nodes. No inguinal adenopathy. No bowel obstruction. Sigmoid diverticulosis. No diverticulitis. No abdominal wall hernia. Mild interval wedging of the L1 superior endplate. There is a metastatic lesion within the right side of the L4 vertebral body measuring 2.0 cm, similar to the prior study. Additional known lesion in the superior right acetabulum is more difficult to discern but appears similar to the prior CT PET. Metastatic focus within the left paraspinal musculature is also similar. Impression: Diffuse thickening of the distal esophagus is similar. New 7 millimeter pulmonary nodule within medial aspect of the right lower lobe. Similar metastatic lesions within the osseous structures without pathologic fracture. Similar subcentimeter hypodensities in the liver. Chronic cholelithiasis. Chronic sigmoid diverticulosis. Unchanged mildly prominent right hilar lymph node measuring 1.4 cm. Please note that all CT scans at this facility use dose modulation, iterative reconstruction, and/or weight-based dosing when appropriate to reduce radiation dose to as low as reasonably achievable. Dictated by Rolan Flores MD @ 04/28/2023 1:46:31 PM (Electronically Signed)
== END 2023-04-28 10:25 | disposition home or self-care (01) ==
LOC: CT 10:25
PROVIDERS: PCP Physician Assistant Medical; Visit Provider Internal Medicine Hematology & Oncology
DX: Z51.11 Encounter for antineoplastic chemotherapy (principal); Z51.12 Encounter for antineoplastic immunotherapy; R91.1 Solitary pulmonary nodule; M89.9 Disorder of bone, unspecified; K80.20 Calculus of gallbladder without cholecystitis without obstruction; K57.30 Diverticulosis of large intestine without perforation or abscess without bleeding
CPT/HCPCS: 71260; 74177; Q9967

== ENCOUNTER 2023-06-05 13:27 | Outpatient (CLI) | payer MEDICARE, SELFPAY ==
--- NOTE | 2023-06-05 14:00 | CRLHL7_ITS ---
For Patients: As a result of the 21st Century Cures Act, medical imaging exams and procedure reports are released immediately into your electronic medical record. You may view this report before your referring provider. If you have questions, please contact your health care provider. INDICATION: 68 year-old male. Metastatic esophageal adenocarcinoma. Follow-up after treatment. Restaging. TECHNIQUE: 12.33 mCi 18 FDG (18 mbcmwp-jb-wyh-glucose) injected intravenously. Imaging performed from the skull vertex through the distal thighs [address] performed for anatomic correlation and attenuation correction. Pre scan glucose: 98 mg/dL. COMPARISON: PET/CT scan January 30, 2023. Correlation is made with a more recent CT of the chest abdomen and pelvis April 28, 2023. FINDINGS: Physiologic activity is identified in the brain, salivary glands, tongue, paralaryngeal soft tissues, myocardium, GI, and tract. There are 3 discrete foci of activity projected over the chest, 2 toward the right of midline anterior to the chest, and one along the lower right neck. These are all external to the patient. The intracranial structures, soft tissues of the head, face, and neck are within normal limits. No abnormal activity in the thyroid gland. Within the chest there is focal uptake within the distal esophagus SUV max 7.4, previously 6.3. Within the left upper lobe a previously identified metabolically active nodule with an SUV max of 2.2 is less evident with an SUV max of 1.9. There is an additional pulmonary nodule in the posterior left upper lobe of the lung not metabolically active. There is a tiny approximately 7 mm pulmonary nodule within the posteromedial right lower lobe of the lung new from the comparison PET/CT scan with an SUV max of 3.6. This was described on the most recent chest CT scan April 28, 2023. There is a 1 cm subcutaneous nodule within the anterior left upper chest wall, image 108, SUV max 5.6. In retrospect this was barely present previously and not metabolically active. Within the abdomen the solid upper abdominal organs are within normal limits. Metabolic activity within the retrocrural musculature seen previously is likely physiologic. No focal metabolic activity within upper abdominal lymph node groups. The lower abdomen, pelvis, and both inguinal regions are within normal limits. Within the included skeleton again noted are focal metabolically active skeletal metastases. For example: Medial left clavicular head SUV max 9.7, previously 7.6. Increased metabolic activity right L4 vertebral body and pedicle SUV max 11.4, previously 12.1. Left sacral ala near the SI joint, SUV max 8.6, previously 4.4. Posterior right acetabulum SUV max 11.3, previously 9.4. Focal uptake proximal left femur anterior to the proximal intra medullary marcello SUV max 5.4 not convincingly present previously. Focal uptake posterior left paraspinal muscles at the L4-5 level SUV max 5.7, previously 7.6. Focal uptake within the left gluteal musculature, image 258, SUV max 13.5, in retrospect 5.5. This latter focus of uptake was present previously but was not described on the prior PET scan. CT Findings: Right-sided Port-A-Cath with its lead tip in the superior vena cava. Subtle subcentimeter pulmonary nodule posteromedial right lower lobe of the lung. Clustered nodularity left upper lobe of the lung posterior laterally. 1 cm subcutaneous nodule anterior to left upper chest wall. Coronary artery calcification. Vascular calcification in the thoracic aorta. Small esophageal hiatal hernia. Thickening of the mid to distal esophageal wall. No hydronephrosis or splenomegaly. Dense vascular calcification within the abdominal aorta, iliac arteries, and a few branch vessels. Cholelithiasis. Soft tissue mass left gluteal musculature. Diverticulosis. Prostatic enlargement. Left intramedullary femoral marcello. Left intertrochanteric pin. Lytic lesion posterior right acetabulum and posterior right L4 vertebral body and pedicle. Sclerotic lesion in the left clavicular head. IMPRESSION : 1. In general the metabolically active skeletal metastases described previously have progressed in terms of their metabolic activity. Tiny new discrete focus of activity within the anterior proximal left femur. 2. New tiny subcentimeter metabolically active nodule posteromedial right lower lobe of the lung measuring less than 1 cm with an SUV max of 3.6. Stable to slightly decreased activity within a nodule in the posterior left upper lobe of the lung. 3. Persistent and mildly progressed metabolic activity in the distal esophagus, SUV max 7.4 previously 6.3. 4. There is a 1 cm subcutaneous nodule upper anterior chest wall with an SUV max of 5.6 very subtly present in retrospect and not metabolically active previously. 5. Progressive metastatic soft tissue deposit within the left gluteal musculature, SUV max 13.5, previously 5.5. 6. Interval decrease in the metabolic activity within an intramuscular lesion posterior left lower paraspinal region at the level of L4-5 with an SUV max 5.7, previously 7.6. 7. In general there has been progression of activity within the skeletal metastases as described above. Dictated by Helio Stuart MD @ 06/13/2023 4:46:47 PM (Electronically Signed)
== END 2023-06-05 13:28 | disposition home or self-care (01) ==
LOC: RAD 13:28
PROVIDERS: PCP Physician Assistant Medical; Visit Provider Internal Medicine Hematology & Oncology
DX: C15.5 Malignant neoplasm of lower third of esophagus (principal)
CPT/HCPCS: 78815; A9552

== ENCOUNTER 2023-06-16 13:30 | Outpatient (RCR) | payer MEDICARE, SELFPAY ==
[2022-12-31 09:12] VITALS: BP 116/78; PULSE 107; RESP 16; TEMP 36.6; O2SAT 91
[2022-12-31 09:36] LABS: Basophils Absolute Auto 0.02 K/uL (0.00-0.30); Basophils Percent Auto 0.3 % (0.0-3.0); Eosinophils Absolute Auto 0.02 K/uL (0.00-0.50); Eosinophils Percent Auto 0.3 % (0.0-7.0); Hematocrit 40.2 % (37.0-53.0); Hemoglobin* 13.3 gm/dL (13.5-17.5); Immature Granulocytes Abs Auto 0.02 K/uL (0.00-0.30); Immature Granulocytes Pct Auto 0.3 %; Lymphocytes Absolute Auto 1.67 K/uL (0.90-2.90); Lymphocytes Percent Auto 26.1 % (20-44); Mean Corpuscular HGB Conc 33 gm/dL (32-36); Mean Corpuscular Hemoglobin 35 pg (26-34); Mean Corpuscular Volume 105 fL (80-100); Monocytes Percent Auto 22.2 % (0.0-11.0); Neutrophils Absolute Auto 3.24 K/uL (1.7-7.0); Neutrophils Percent Auto 50.8 % (42.0-72.0); Platelet Count* 177 K/uL (140-440); RDW Coefficient of Variation % 14.9 % (11.5-15.5); Red Blood Count 3.82 m/uL (4.30-5.90); White Blood Count* 6.39 K/uL (4.50-11.00)
[2022-12-31 09:38] LABS: Slide Review Reflex No
[2022-12-31 09:50] LABS: Albumin* 3.8 g/dL (3.3-5.0); Chloride* 105 mmol/L (96-114)
[2022-12-31 09:51] LABS: Potassium* 3.7 mmol/L (3.6-5.1); Sodium* 138 mmol/L (135-149)
[2022-12-31 09:53] LABS: Alkaline Phosphatase* 104 U/L (40-150); Aspartate Amino Transferase* 29 U/L (12-35); Bilirubin Total* 0.5 mg/dL (0.1-1.5); Blood Urea Nitrogen* 12 mg/dL (7-30); Carbon Dioxide* 28 mmol/L (20-32); Creatinine* 0.4 mg/dL (0.5-1.5); Estimated Glomerular Filt Rate 120 ml/min; Total Protein* 7.3 g/dL (6.0-8.3)
[2022-12-31 09:54] LABS: Alanine Aminotransferase* 20 U/L (4-50); Calcium* 8.8 mg/dL (8.4-10.6); Glucose* 160 mg/dL (60-115)
[2022-12-31] MEDS: NIVOLUMAB 240 MG, TUBING PRIMARY 1 EACH, In-line 0.2 micron filter set 1 EACH in 0.9 % ... 248 MG IVPB (10:33)
[2022-12-31] MEDS: PALONOSETRON 0.25 MG/5 ML inj IV (11:07)
[2022-12-31] MEDS: dexAMETHasone 20 MG in 0.9 % SODIUM CHLORIDE 100 ml 100 ML 408 MG IVPB (11:07)
[2023-01-01 23:08] LABS: Cortisol, Serum 11.5 ug/dL
--- NOTE | 2023-01-02 13:49 | ONC.NURNOTE ---
Patient is here for pump off and medical oncology visit today. When taking pump off, noted that there was no dressing on the patients port site. Due to this, there was a slightly red area around the insertion site. At the cap end of the infusion tubing, white residue present. No leaking noted when play writer flushed the tubing. Patient instructed to watch the area, and take a shower at home. Patient also instructed to wash clothing when he gets home.
[2023-01-14 09:40] VITALS: BP 141/82; PULSE 114; RESP 16; TEMP 36.4; O2SAT 91
[2023-01-14 09:51] LABS: Basophils Absolute Auto 0.01 K/uL (0.00-0.30); Basophils Percent Auto 0.1 % (0.0-3.0); Eosinophils Absolute Auto 0.02 K/uL (0.00-0.50); Eosinophils Percent Auto 0.3 % (0.0-7.0); Hematocrit 40.5 % (37.0-53.0); Hemoglobin* 13.6 gm/dL (13.5-17.5); Lymphocytes Absolute Auto 1.98 K/uL (0.90-2.90); Mean Corpuscular HGB Conc 34 gm/dL (32-36); Mean Corpuscular Hemoglobin 35 pg (26-34); Mean Corpuscular Volume 104 fL (80-100); Neutrophils Absolute Auto 3.65 K/uL (1.7-7.0); Neutrophils Percent Auto 53.6 % (42.0-72.0); Platelet Count* 153 K/uL (140-440); RDW Coefficient of Variation % 15.2 % (11.5-15.5); Red Blood Count 3.88 m/uL (4.30-5.90); White Blood Count* 6.82 K/uL (4.50-11.00)
[2023-01-14 09:53] LABS: Slide Review Reflex No
[2023-01-14 10:03] LABS: Chloride* 107 mmol/L (96-114)
[2023-01-14 10:04] LABS: Albumin* 4.1 g/dL (3.3-5.0); Sodium* 140 mmol/L (135-149)
[2023-01-14 10:07] LABS: Alanine Aminotransferase* 22 U/L (4-50); Alkaline Phosphatase* 94 U/L (40-150); Aspartate Amino Transferase* 31 U/L (12-35); Bilirubin Total* 0.6 mg/dL (0.1-1.5); Blood Urea Nitrogen* 16 mg/dL (7-30); Carbon Dioxide* 28 mmol/L (20-32); Creatinine* 0.5 mg/dL (0.5-1.5); Estimated Glomerular Filt Rate 112 ml/min; Glucose* 149 mg/dL (60-115); Total Protein* 7.7 g/dL (6.0-8.3)
[2023-01-14 10:08] LABS: Calcium* 9.3 mg/dL (8.4-10.6)
[2023-01-14] MEDS: ZOLEDRONIC ACID 4 MG in 0.9 % SODIUM CHLORIDE 100 ml 100 ML 420 MG IVPB (11:30)
[2023-01-14] MEDS: NIVOLUMAB 240 MG, TUBING PRIMARY 1 EACH, In-line 0.2 micron filter set 1 EACH in 0.9 % ... 248 MG IVPB (11:51)
[2023-01-14] MEDS: dexAMETHasone 20 MG in 0.9 % SODIUM CHLORIDE 100 ml 100 ML 408 MG IVPB (12:26)
[2023-01-14] MEDS: PALONOSETRON 0.25 MG/5 ML inj IV (12:26)
[2023-01-14] MEDS: OXALIPLATIN 5 MG/ML INJ 100 MG, TUBING PRIMARY 1 EACH in 5 % DEXTROSE 250 ML 250 ML 135 MG IV (12:49)
[2023-01-16 13:08] VITALS: BP 111/72; PULSE 110; RESP 16; TEMP 36.6; O2SAT 86
[2023-01-28 09:36] VITALS: BP 116/75; PULSE 98; RESP 16; TEMP 36.3; O2SAT 92
[2023-01-28 10:15] LABS: Basophils Absolute Auto 0.01 K/uL (0.00-0.30); Basophils Percent Auto 0.2 % (0.0-3.0); Eosinophils Absolute Auto 0.02 K/uL (0.00-0.50); Eosinophils Percent Auto 0.3 % (0.0-7.0); Hematocrit 39.2 % (37.0-53.0); Hemoglobin* 13.1 gm/dL (13.5-17.5); Immature Granulocytes Abs Auto 0.01 K/uL (0.00-0.30); Immature Granulocytes Pct Auto 0.2 %; Lymphocytes Absolute Auto 1.47 K/uL (0.90-2.90); Lymphocytes Percent Auto 23.8 % (20-44); Mean Corpuscular HGB Conc 33 gm/dL (32-36); Mean Corpuscular Hemoglobin 35 pg (26-34); Mean Corpuscular Volume 104 fL (80-100); Monocytes Percent Auto 20.1 % (0.0-11.0); Neutrophils Absolute Auto 3.42 K/uL (1.7-7.0); Neutrophils Percent Auto 55.4 % (42.0-72.0); Platelet Count* 105 K/uL (140-440); RDW Coefficient of Variation % 14.6 % (11.5-15.5); Red Blood Count 3.76 m/uL (4.30-5.90); White Blood Count* 6.17 K/uL (4.50-11.00)
[2023-01-28 10:21] LABS: Slide Review Reflex No
[2023-01-28 10:24] LABS: Albumin* 3.9 g/dL (3.3-5.0); Chloride* 105 mmol/L (96-114); Potassium* 3.7 mmol/L (3.6-5.1); Sodium* 140 mmol/L (135-149)
[2023-01-28 10:26] LABS: Creatinine* 0.4 mg/dL (0.5-1.5); Estimated Glomerular Filt Rate 120 ml/min
[2023-01-28 10:27] LABS: Alanine Aminotransferase* 22 U/L (4-50); Alkaline Phosphatase* 97 U/L (40-150); Aspartate Amino Transferase* 30 U/L (12-35); Bilirubin Total* 0.5 mg/dL (0.1-1.5); Blood Urea Nitrogen* 12 mg/dL (7-30); Calcium* 9.2 mg/dL (8.4-10.6); Carbon Dioxide* 28 mmol/L (20-32); Glucose* 124 mg/dL (60-115); Total Protein* 7.3 g/dL (6.0-8.3)
[2023-01-28] MEDS: NIVOLUMAB 240 MG, TUBING PRIMARY 1 EACH, In-line 0.2 micron filter set 1 EACH in 0.9 % ... 248 MG IVPB (11:27)
[2023-01-28] MEDS: PALONOSETRON 0.25 MG/5 ML inj IV (12:00)
[2023-01-28] MEDS: dexAMETHasone 20 MG in 0.9 % SODIUM CHLORIDE 100 ml 100 ML 408 MG IVPB (12:00)
[2023-01-28] MEDS: OXALIPLATIN 5 MG/ML INJ 100 MG, TUBING PRIMARY 1 EACH in 5 % DEXTROSE 250 ML 250 ML 135 MG IV (12:21)
[2023-01-30 03:20] LABS: Cortisol, Serum 7.9 ug/dL
[2023-01-30 13:49] VITALS: BP 124/71; PULSE 117; RESP 16; TEMP 36.7; O2SAT 95
[2023-01-30] MEDS: SODIUM CHLORIDE 0.9 % (FLUSH) 10 ML SYRINGE IVF (15:07)
[2023-02-11 08:09] VITALS: BP 113/77; PULSE 118; RESP 16; TEMP 36.4; O2SAT 93
[2023-02-11 08:28] LABS: Basophils Absolute Auto 0.01 K/uL (0.00-0.30); Basophils Percent Auto 0.1 % (0.0-3.0); Eosinophils Absolute Auto 0.04 K/uL (0.00-0.50); Eosinophils Percent Auto 0.5 % (0.0-7.0); Hematocrit 40.3 % (37.0-53.0); Hemoglobin* 13.4 gm/dL (13.5-17.5); Immature Granulocytes Abs Auto 0.01 K/uL (0.00-0.30); Immature Granulocytes Pct Auto 0.1 %; Lymphocytes Absolute Auto 1.73 K/uL (0.90-2.90); Lymphocytes Percent Auto 20.9 % (20-44); Mean Corpuscular HGB Conc 33 gm/dL (32-36); Mean Corpuscular Hemoglobin 35 pg (26-34); Mean Corpuscular Volume 106 fL (80-100); Monocytes Percent Auto 17.7 % (0.0-11.0); Neutrophils Absolute Auto 5.02 K/uL (1.7-7.0); Neutrophils Percent Auto 60.7 % (42.0-72.0); Platelet Count* 97 K/uL (140-440); RDW Coefficient of Variation % 15.4 % (11.5-15.5); Red Blood Count 3.82 m/uL (4.30-5.90); Slide Review Reflex No; White Blood Count* 8.27 K/uL (4.50-11.00)
[2023-02-11 08:31] LABS: Chloride* 103 mmol/L (96-114); Potassium* 3.7 mmol/L (3.6-5.1); Sodium* 137 mmol/L (135-149)
[2023-02-11 08:34] LABS: Alkaline Phosphatase* 96 U/L (40-150); Aspartate Amino Transferase* 28 U/L (12-35); Bilirubin Total* 0.8 mg/dL (0.1-1.5); Blood Urea Nitrogen* 8 mg/dL (7-30); Carbon Dioxide* 26 mmol/L (20-32); Creatinine* 0.4 mg/dL (0.5-1.5); Estimated Glomerular Filt Rate 120 ml/min; Glucose* 183 mg/dL (60-115); Total Protein* 7.6 g/dL (6.0-8.3)
[2023-02-11 08:35] LABS: Alanine Aminotransferase* 20 U/L (4-50)
[2023-02-11] MEDS: ZOLEDRONIC ACID 4 MG in 0.9 % SODIUM CHLORIDE 100 ml 100 ML 420 MG IVPB (10:14)
[2023-02-11] MEDS: NIVOLUMAB 240 MG, TUBING PRIMARY 1 EACH, In-line 0.2 micron filter set 1 EACH in 0.9 % ... 248 MG IVPB (10:35)
[2023-02-11] MEDS: PALONOSETRON 0.25 MG/5 ML inj IV (11:07)
[2023-02-11] MEDS: dexAMETHasone 20 MG in 0.9 % SODIUM CHLORIDE 100 ml 100 ML 408 MG IVPB (11:07)
[2023-02-11] MEDS: OXALIPLATIN 5 MG/ML INJ 100 MG, TUBING PRIMARY 1 EACH in 5 % DEXTROSE 250 ML 250 ML 135 MG IV (11:37)
[2023-02-12 23:04] LABS: Cortisol, Serum 17.5 ug/dL
[2023-02-13 13:30] VITALS: BP 124/68; PULSE 122; RESP 20; TEMP 37.1
[2023-02-13] MEDS: HEPARIN 500 UNIT/5 ML SYRINGE IVF (14:01)
[2023-02-13] MEDS: SODIUM CHLORIDE 0.9 % (FLUSH) 10 ML SYRINGE IVF (14:01)
[2023-02-13 16:20] VITALS: PULSE 112; RESP 26; O2SAT 90
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
[2023-03-11 08:05] VITALS: BP 116/65; PULSE 116; RESP 16; TEMP 36.6; O2SAT 93
[2023-03-11 08:18] LABS: Basophils Absolute Auto 0.02 K/uL (0.00-0.30); Basophils Percent Auto 0.3 % (0.0-3.0); Eosinophils Absolute Auto 0.03 K/uL (0.00-0.50); Eosinophils Percent Auto 0.5 % (0.0-7.0); Hematocrit 40.4 % (37.0-53.0); Hemoglobin* 13.7 gm/dL (13.5-17.5); Immature Granulocytes Abs Auto 0.02 K/uL (0.00-0.30); Immature Granulocytes Pct Auto 0.3 %; Lymphocytes Percent Auto 10.2 % (20-44); Mean Corpuscular HGB Conc 34 gm/dL (32-36); Mean Corpuscular Hemoglobin 35 pg (26-34); Mean Corpuscular Volume 102 fL (80-100); Monocytes Percent Auto 14.1 % (0.0-11.0); Neutrophils Percent Auto 74.6 % (42.0-72.0); Platelet Count* 69 K/uL (140-440); Red Blood Count 3.95 m/uL (4.30-5.90); White Blood Count* 5.87 K/uL (4.50-11.00)
[2023-03-11 08:20] LABS: Slide Review Reflex No
[2023-03-11 08:33] LABS: Chloride* 102 mmol/L (96-114); Potassium* 3.3 mmol/L (3.6-5.1); Sodium* 133 mmol/L (135-149)
[2023-03-11 08:35] LABS: Bilirubin Total* 0.7 mg/dL (0.1-1.5); Carbon Dioxide* 26 mmol/L (20-32); Creatinine* 0.4 mg/dL (0.5-1.5); Est. Creatinine Clearance* 52.61; Estimated Glomerular Filt Rate 120 ml/min
[2023-03-11 08:36] LABS: Alanine Aminotransferase* 22 U/L (4-50); Alkaline Phosphatase* 121 U/L (40-150); Aspartate Amino Transferase* 31 U/L (12-35); Blood Urea Nitrogen* 11 mg/dL (7-30); Glucose* 177 mg/dL (60-115); Total Protein* 7.9 g/dL (6.0-8.3)
--- NOTE | 2023-03-11 08:58 | PC.NURSE ---
Pt present at [facility] for treatment. Platelet count 69. Per treatment hold parameters, pt should not receive chemo today. Discussed with Payton Collins APRN and written orders obtained. Dr. Samuels will be updated today. Pt scheduled for labs and treatment next week. Also of note, pt's Na was 133 and K was 3.3. RN advised pt to hydrate with Gatorade or other electrolyte beverages and per Payton Collins APRN, take an extra Potassium 20 mEq tab later today. Cortes is aware of potassium rich foods as well. Support offered.
[2023-03-13 02:35] LABS: Cortisol, Serum 15.3 ug/dL
[2023-03-18 08:10] VITALS: BP 113/71; PULSE 112; RESP 22; TEMP 36.5; O2SAT 93
[2023-03-18 08:16] LABS: Basophils Absolute Auto 0.01 K/uL (0.00-0.30); Basophils Percent Auto 0.2 % (0.0-3.0); Eosinophils Absolute Auto 0.03 K/uL (0.00-0.50); Eosinophils Percent Auto 0.6 % (0.0-7.0); Hematocrit 38.7 % (37.0-53.0); Immature Granulocytes Abs Auto 0.02 K/uL (0.00-0.30); Immature Granulocytes Pct Auto 0.4 %; Lymphocytes Absolute Auto 1.29 K/uL (0.90-2.90); Lymphocytes Percent Auto 24.2 % (20-44); Mean Corpuscular HGB Conc 34 gm/dL (32-36); Mean Corpuscular Hemoglobin 35 pg (26-34); Mean Corpuscular Volume 104 fL (80-100); Monocytes Percent Auto 13.1 % (0.0-11.0); Neutrophils Absolute Auto 3.28 K/uL (1.7-7.0); Neutrophils Percent Auto 61.5 % (42.0-72.0); Platelet Count* 105 K/uL (140-440); Red Blood Count 3.73 m/uL (4.30-5.90); White Blood Count* 5.33 K/uL (4.50-11.00)
[2023-03-18 08:20] LABS: Slide Review Reflex No
[2023-03-18 08:25] LABS: Albumin* 3.8 g/dL (3.3-5.0); Chloride* 100 mmol/L (96-114)
[2023-03-18 08:26] LABS: Potassium* 3.6 mmol/L (3.6-5.1); Sodium* 138 mmol/L (135-149)
[2023-03-18 08:28] LABS: Alkaline Phosphatase* 115 U/L (40-150); Aspartate Amino Transferase* 30 U/L (12-35); Bilirubin Total* 0.4 mg/dL (0.1-1.5); Blood Urea Nitrogen* 10 mg/dL (7-30); Carbon Dioxide* 30 mmol/L (20-32); Creatinine* 0.4 mg/dL (0.5-1.5); Est. Creatinine Clearance* 53.07; Estimated Glomerular Filt Rate 120 ml/min; Total Protein* 7.6 g/dL (6.0-8.3)
[2023-03-18 08:29] LABS: Alanine Aminotransferase* 21 U/L (4-50); Calcium* 9.5 mg/dL (8.4-10.6); Glucose* 182 mg/dL (60-115)
[2023-03-18] MEDS: ZOLEDRONIC ACID 4 MG in 0.9 % SODIUM CHLORIDE 100 ml 100 ML 420 MG IVPB (09:42)
[2023-03-18] MEDS: NIVOLUMAB 240 MG, TUBING PRIMARY 1 EACH, In-line 0.2 micron filter set 1 EACH in 0.9 % ... 248 MG IVPB (10:05)
[2023-03-18] MEDS: dexAMETHasone 20 MG in 0.9 % SODIUM CHLORIDE 100 ml 100 ML 408 MG IVPB (10:43)
[2023-03-18] MEDS: PALONOSETRON 0.25 MG/5 ML inj IV (10:43)
[2023-03-18] MEDS: OXALIPLATIN 5 MG/ML INJ 100 MG, TUBING PRIMARY 1 EACH in 5 % DEXTROSE 250 ML 250 ML 135 MG IV (11:10)
[2023-03-20] MEDS: SODIUM CHLORIDE 0.9 % (FLUSH) 10 ML SYRINGE IVF (11:23)
[2023-03-20] MEDS: HEPARIN 500 UNIT/5 ML SYRINGE IVF (11:23)
[2023-03-20 11:36] VITALS: BP 116/62; PULSE 108; RESP 16; TEMP 36.7; O2SAT 91
[2023-04-01 08:13] LABS: Basophils Absolute Auto 0.01 K/uL (0.00-0.30); Basophils Percent Auto 0.2 % (0.0-3.0); Eosinophils Absolute Auto 0.04 K/uL (0.00-0.50); Eosinophils Percent Auto 0.8 % (0.0-7.0); Hemoglobin* 13.5 gm/dL (13.5-17.5); Immature Granulocytes Abs Auto 0.04 K/uL (0.00-0.30); Immature Granulocytes Pct Auto 0.8 %; Lymphocytes Absolute Auto 1.66 K/uL (0.90-2.90); Lymphocytes Percent Auto 31.3 % (20-44); Mean Corpuscular HGB Conc 33 gm/dL (32-36); Mean Corpuscular Hemoglobin 35 pg (26-34); Mean Corpuscular Volume 106 fL (80-100); Monocytes Percent Auto 18.7 % (0.0-11.0); Neutrophils Absolute Auto 2.56 K/uL (1.7-7.0); Neutrophils Percent Auto 48.2 % (42.0-72.0); Platelet Count* 74 K/uL (140-440); Red Blood Count 3.87 m/uL (4.30-5.90)
[2023-04-01 08:18] LABS: Slide Review Reflex No
[2023-04-01 08:25] LABS: Albumin* 4.3 g/dL (3.3-5.0); Chloride* 101 mmol/L (96-114)
[2023-04-01 08:26] LABS: Potassium* 4.3 mmol/L (3.6-5.1); Sodium* 141 mmol/L (135-149)
[2023-04-01 08:28] LABS: Bilirubin Total* 0.7 mg/dL (0.1-1.5); Carbon Dioxide* 33 mmol/L (20-32); Creatinine* 0.5 mg/dL (0.5-1.5); Est. Creatinine Clearance* 52.28; Estimated Glomerular Filt Rate 111 ml/min; Total Protein* 8.3 g/dL (6.0-8.3)
[2023-04-01 08:29] LABS: Alanine Aminotransferase* 27 U/L (4-50); Alkaline Phosphatase* 113 U/L (40-150); Aspartate Amino Transferase* 40 U/L (12-35); Blood Urea Nitrogen* 14 mg/dL (7-30); Calcium* 9.9 mg/dL (8.4-10.6); Glucose* 118 mg/dL (60-115)
[2023-04-01 09:12] VITALS: BP 98/65; PULSE 95; RESP 16; TEMP 36; O2SAT 95
--- NOTE | 2023-04-01 09:44 | ONC.NURNOTE ---
Pt's chemo treatment held today d/t plt 74; resched in 1 week for lab recheck. Appt with Dr. Samuels kept on 04/15 despite not aligning with treatment schedule; pt ok with this plan. Pt's right vinson has persistent red, raised painful area consistent with previous cellulitis. While the area has improved, it has not fully resolved. Per Payton Youngblood APRN, pt needs to see PCP Christian Fuentes who was part of the previous ceullitis treatment planning. Appt made for tomorrow 2pm.
[2023-04-02 21:53] LABS: Cortisol, Serum 14.5 ug/dL
[2023-04-08 07:57] VITALS: BP 108/71; PULSE 128; RESP 16; TEMP 36
[2023-04-08 08:18] LABS: Basophils Percent Auto 0.3 % (0.0-3.0); Eosinophils Percent Auto 0.5 % (0.0-7.0); Hematocrit 37.5 % (37.0-53.0); Hemoglobin* 12.6 gm/dL (13.5-17.5); Lymphocytes Percent Auto 33.2 % (20-44); Mean Corpuscular HGB Conc 34 gm/dL (32-36); Mean Corpuscular Hemoglobin 35 pg (26-34); Mean Corpuscular Volume 104 fL (80-100); Monocytes Percent Auto 29.8 % (0.0-11.0); Neutrophils Percent Auto 35.2 % (42.0-72.0); Platelet Count* 166 K/uL (140-440); RDW Coefficient of Variation % 14.9 % (11.5-15.5); Red Blood Count 3.61 m/uL (4.30-5.90); White Blood Count* 3.83 K/uL (4.50-11.00)
[2023-04-08 08:33] LABS: Albumin* 3.9 g/dL (3.3-5.0); Chloride* 100 mmol/L (96-114); Potassium* 3.3 mmol/L (3.6-5.1); Sodium* 137 mmol/L (135-149)
[2023-04-08 08:35] LABS: Bilirubin Total* 0.4 mg/dL (0.1-1.5); Carbon Dioxide* 33 mmol/L (20-32); Creatinine* 0.4 mg/dL (0.5-1.5); Est. Creatinine Clearance* 52.62; Estimated Glomerular Filt Rate 119 ml/min
[2023-04-08 08:36] LABS: Alanine Aminotransferase* 27 U/L (4-50); Alkaline Phosphatase* 119 U/L (40-150); Aspartate Amino Transferase* 39 U/L (12-35); Blood Urea Nitrogen* 7 mg/dL (7-30); Glucose* 174 mg/dL (60-115); Total Protein* 7.5 g/dL (6.0-8.3)
[2023-04-08 08:37] LABS: Calcium* 9.1 mg/dL (8.4-10.6)
[2023-04-08 08:43] LABS: Slide Review Reflex No
[2023-04-08] MEDS: NIVOLUMAB 240 MG, TUBING PRIMARY 1 EACH, In-line 0.2 micron filter set 1 EACH in 0.9 % ... 248 MG IVPB (10:12)
[2023-04-08] MEDS: PALONOSETRON 0.25 MG/5 ML inj IV (10:46)
[2023-04-08] MEDS: dexAMETHasone 20 MG in 0.9 % SODIUM CHLORIDE 100 ml 100 ML 408 MG IVPB (10:46)
--- NOTE | 2023-04-08 12:12 | ONC.NURNOTE ---
Pt here for Opdivo and folfox. VSS. Platelets improved and within parameters. ANC 1.3. Pt seen by primary care last week for cellulitis of left vinson and started doxycycline. Redness improved, pt does still have intermittent pain to that area. 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 Pt needs to contact his primary care provider if cellulitis does not continue to improve or becomes more painful.
[2023-04-09 16:14] LABS: Cortisol, Serum 14.3 ug/dL
[2023-04-10] MEDS: SODIUM CHLORIDE 0.9 % (FLUSH) 10 ML SYRINGE IVF (11:04)
[2023-04-10] MEDS: HEPARIN 500 UNIT/5 ML SYRINGE IVF (11:04)
[2023-04-10 11:05] VITALS: BP 93/54; PULSE 112; RESP 22; TEMP 36.3; O2SAT 92
[2023-04-22 10:57] VITALS: BP 104/58; PULSE 110; RESP 16; TEMP 36.6; O2SAT 96
[2023-04-22 11:22] LABS: Basophils Absolute Auto 0.01 K/uL (0.00-0.30); Basophils Percent Auto 0.2 % (0.0-3.0); Eosinophils Absolute Auto 0.02 K/uL (0.00-0.50); Eosinophils Percent Auto 0.3 % (0.0-7.0); Hematocrit 35.1 % (37.0-53.0); Hemoglobin* 11.6 gm/dL (13.5-17.5); Lymphocytes Absolute Auto 1.75 K/uL (0.90-2.90); Lymphocytes Percent Auto 29.3 % (20-44); Mean Corpuscular HGB Conc 33 gm/dL (32-36); Mean Corpuscular Hemoglobin 35 pg (26-34); Mean Corpuscular Volume 106 fL (80-100); Monocytes Percent Auto 15.9 % (0.0-11.0); Neutrophils Absolute Auto 3.25 K/uL (1.7-7.0); Neutrophils Percent Auto 54.3 % (42.0-72.0); Platelet Count* 120 K/uL (140-440); RDW Coefficient of Variation % 15.4 % (11.5-15.5); Red Blood Count 3.32 m/uL (4.30-5.90); White Blood Count* 5.98 K/uL (4.50-11.00)
[2023-04-22 11:27] LABS: Slide Review Reflex No
[2023-04-22 11:37] LABS: Albumin* 3.8 g/dL (3.3-5.0)
[2023-04-22 11:38] LABS: Chloride* 102 mmol/L (96-114); Potassium* 3.7 mmol/L (3.6-5.1); Sodium* 137 mmol/L (135-149)
[2023-04-22 11:40] LABS: Bilirubin Total* 0.5 mg/dL (0.1-1.5); Carbon Dioxide* 30 mmol/L (20-32); Creatinine* 0.4 mg/dL (0.5-1.5); Est. Creatinine Clearance* 52.57; Estimated Glomerular Filt Rate 119 ml/min
[2023-04-22 11:41] LABS: Alanine Aminotransferase* 28 U/L (4-50); Alkaline Phosphatase* 109 U/L (40-150); Aspartate Amino Transferase* 38 U/L (12-35); Blood Urea Nitrogen* 9 mg/dL (7-30); Glucose* 167 mg/dL (60-115); Total Protein* 7.3 g/dL (6.0-8.3)
[2023-04-22 11:42] LABS: Calcium* 9.1 mg/dL (8.4-10.6)
[2023-04-22] MEDS: ZOLEDRONIC ACID 4 MG in 0.9 % SODIUM CHLORIDE 100 ml 100 ML 420 MG IVPB (12:34)
[2023-04-22] MEDS: NIVOLUMAB 240 MG, TUBING PRIMARY 1 EACH, In-line 0.2 micron filter set 1 EACH in 0.9 % ... 248 MG IVPB (13:31)
[2023-04-22] MEDS: dexAMETHasone 20 MG in 0.9 % SODIUM CHLORIDE 100 ml 100 ML 408 MG IVPB (14:05)
[2023-04-22] MEDS: PALONOSETRON 0.25 MG/5 ML inj IV (14:05)
[2023-04-23 18:27] LABS: Cortisol, Serum 9.8 ug/dL
[2023-04-24 14:30] VITALS: BP 131/79; PULSE 103; RESP 16; TEMP 36.1; O2SAT 89
[2023-04-24] MEDS: HEPARIN 500 UNIT/5 ML SYRINGE IVF (14:53)
[2023-04-24] MEDS: SODIUM CHLORIDE 0.9 % (FLUSH) 10 ML SYRINGE IVF (14:53)
[2023-05-06 08:55] LABS: Basophils Absolute Auto 0.01 K/uL (0.00-0.30); Basophils Percent Auto 0.1 % (0.0-3.0); Eosinophils Absolute Auto 0.03 K/uL (0.00-0.50); Eosinophils Percent Auto 0.4 % (0.0-7.0); Hemoglobin* 12.6 gm/dL (13.5-17.5); Immature Granulocytes Abs Auto 0.02 K/uL (0.00-0.30); Immature Granulocytes Pct Auto 0.3 %; Lymphocytes Absolute Auto 1.69 K/uL (0.90-2.90); Lymphocytes Percent Auto 24.7 % (20-44); Mean Corpuscular HGB Conc 33 gm/dL (32-36); Mean Corpuscular Hemoglobin 35 pg (26-34); Mean Corpuscular Volume 106 fL (80-100); Monocytes Percent Auto 17.8 % (0.0-11.0); Neutrophils Absolute Auto 3.88 K/uL (1.7-7.0); Neutrophils Percent Auto 56.7 % (42.0-72.0); Platelet Count* 131 K/uL (140-440); RDW Coefficient of Variation % 15.9 % (11.5-15.5); Red Blood Count 3.58 m/uL (4.30-5.90); White Blood Count* 6.85 K/uL (4.50-11.00)
[2023-05-06 09:03] LABS: Slide Review Reflex No
[2023-05-06 09:06] LABS: Chloride* 101 mmol/L (96-114)
[2023-05-06 09:07] LABS: Potassium* 4.2 mmol/L (3.6-5.1); Sodium* 137 mmol/L (135-149)
[2023-05-06 09:09] LABS: Alanine Aminotransferase* 25 U/L (4-50); Alkaline Phosphatase* 106 U/L (40-150); Aspartate Amino Transferase* 36 U/L (12-35); Bilirubin Total* 0.4 mg/dL (0.1-1.5); Blood Urea Nitrogen* 13 mg/dL (7-30); Carbon Dioxide* 30 mmol/L (20-32); Creatinine* 0.4 mg/dL (0.5-1.5); Estimated Glomerular Filt Rate 119 ml/min; Glucose* 111 mg/dL (60-115); Total Protein* 7.7 g/dL (6.0-8.3)
[2023-05-06 09:10] LABS: Calcium* 9.3 mg/dL (8.4-10.6)
[2023-05-06] MEDS: NIVOLUMAB 240 MG, TUBING PRIMARY 1 EACH, In-line 0.2 micron filter set 1 EACH in 0.9 % ... 248 MG IVPB (10:30)
[2023-05-06] MEDS: PALONOSETRON 0.25 MG/5 ML inj IV (11:19)
[2023-05-06] MEDS: dexAMETHasone 20 MG in 0.9 % SODIUM CHLORIDE 100 ml 100 ML 408 MG IVPB (11:19)
[2023-05-08 05:55] LABS: Cortisol, Serum 11.9 ug/dL
[2023-05-08 10:00] VITALS: BP 109/74; PULSE 113; RESP 22; TEMP 36.1; O2SAT 90
[2023-05-08] MEDS: HEPARIN 500 UNIT/5 ML SYRINGE IVF (10:42)
[2023-05-08] MEDS: SODIUM CHLORIDE 0.9 % (FLUSH) 10 ML SYRINGE IVF (10:43)
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
[2023-05-20 08:39] LABS: Basophils Absolute Auto 0.01 K/uL (0.00-0.30); Basophils Percent Auto 0.1 % (0.0-3.0); Eosinophils Absolute Auto 0.03 K/uL (0.00-0.50); Eosinophils Percent Auto 0.4 % (0.0-7.0); Hematocrit 39.5 % (37.0-53.0); Immature Granulocytes Abs Auto 0.01 K/uL (0.00-0.30); Immature Granulocytes Pct Auto 0.1 %; Lymphocytes Absolute Auto 1.49 K/uL (0.90-2.90); Lymphocytes Percent Auto 20.1 % (20-44); Mean Corpuscular HGB Conc 33 gm/dL (32-36); Mean Corpuscular Hemoglobin 35 pg (26-34); Mean Corpuscular Volume 106 fL (80-100); Monocytes Percent Auto 16.5 % (0.0-11.0); Neutrophils Absolute Auto 4.64 K/uL (1.7-7.0); Neutrophils Percent Auto 62.8 % (42.0-72.0); Platelet Count* 92 K/uL (140-440); RDW Coefficient of Variation % 14.7 % (11.5-15.5); Red Blood Count 3.72 m/uL (4.30-5.90)
[2023-05-20 08:41] LABS: Slide Review Reflex No
[2023-05-20 08:51] VITALS: BP 111/73; PULSE 95; RESP 16; TEMP 36.6; O2SAT 93
[2023-05-20 09:00] LABS: Chloride* 102 mmol/L (96-114); Sodium* 138 mmol/L (135-149)
[2023-05-20 09:03] LABS: Alkaline Phosphatase* 118 U/L (40-150); Anion Gap 5 mEq/L (7-15); Aspartate Amino Transferase* 40 U/L (12-35); Bilirubin Total* 0.6 mg/dL (0.1-1.5); Blood Urea Nitrogen* 11 mg/dL (7-30); Carbon Dioxide* 31 mmol/L (20-32); Creatinine* 0.3 mg/dL (0.5-1.5); Est. Creatinine Clearance* 51.39; Estimated Glomerular Filt Rate 130 ml/min
[2023-05-20 09:04] LABS: Alanine Aminotransferase* 27 U/L (4-50); Calcium* 9.4 mg/dL (8.4-10.6); Glucose* 86 mg/dL (60-115)
[2023-05-20] MEDS: HEPARIN 500 UNIT/5 ML SYRINGE IVF (10:11)
[2023-05-20] MEDS: SODIUM CHLORIDE 0.9 % (FLUSH) 10 ML SYRINGE IVF (10:11)
[2023-05-22 00:24] LABS: Cortisol, Serum 14.3 ug/dL
[2023-05-27 08:07] VITALS: BP 105/60; PULSE 122; RESP 16; TEMP 36.7; O2SAT 91
[2023-05-27 08:17] LABS: Basophils Absolute Auto 0.02 K/uL (0.00-0.30); Basophils Percent Auto 0.3 % (0.0-3.0); Eosinophils Absolute Auto 0.04 K/uL (0.00-0.50); Eosinophils Percent Auto 0.6 % (0.0-7.0); Hematocrit 38.7 % (37.0-53.0); Hemoglobin* 12.8 gm/dL (13.5-17.5); Immature Granulocytes Abs Auto 0.03 K/uL (0.00-0.30); Immature Granulocytes Pct Auto 0.5 %; Lymphocytes Absolute Auto 1.78 K/uL (0.90-2.90); Lymphocytes Percent Auto 28.4 % (20-44); Mean Corpuscular HGB Conc 33 gm/dL (32-36); Mean Corpuscular Hemoglobin 35 pg (26-34); Mean Corpuscular Volume 106 fL (80-100); Monocytes Percent Auto 18.7 % (0.0-11.0); Neutrophils Absolute Auto 3.22 K/uL (1.7-7.0); Neutrophils Percent Auto 51.5 % (42.0-72.0); Platelet Count* 145 K/uL (140-440); RDW Coefficient of Variation % 14.3 % (11.5-15.5); Red Blood Count 3.64 m/uL (4.30-5.90); White Blood Count* 6.26 K/uL (4.50-11.00)
[2023-05-27 08:19] LABS: Slide Review Reflex No
[2023-05-27] MEDS: dexAMETHasone 20 MG in 0.9 % SODIUM CHLORIDE 100 ml 100 ML 408 MG IVPB (09:10)
[2023-05-27] MEDS: PALONOSETRON 0.25 MG/5 ML inj IV (09:10)
[2023-05-27] MEDS: NIVOLUMAB 240 MG, TUBING PRIMARY 1 EACH, In-line 0.2 micron filter set 1 EACH in 0.9 % ... 248 MG IVPB (09:34)
[2023-05-27] MEDS: HEPARIN 500 UNIT/5 ML SYRINGE IVF (16:07)
[2023-05-27] MEDS: SODIUM CHLORIDE 0.9 % (FLUSH) 10 ML SYRINGE IVF (16:07)
[2023-05-29 08:55] VITALS: BP 113/67; RESP 16; TEMP 36.4; O2SAT 88
[2023-05-29] MEDS: HEPARIN 500 UNIT/5 ML SYRINGE IVF (09:32)
[2023-05-29] MEDS: SODIUM CHLORIDE 0.9 % (FLUSH) 10 ML SYRINGE IVF (09:32)
[2023-06-10 08:16] LABS: Basophils Absolute Auto 0.01 K/uL (0.00-0.30); Basophils Percent Auto 0.2 % (0.0-3.0); Eosinophils Absolute Auto 0.01 K/uL (0.00-0.50); Eosinophils Percent Auto 0.2 % (0.0-7.0); Hematocrit 36.8 % (37.0-53.0); Hemoglobin* 12.4 gm/dL (13.5-17.5); Immature Granulocytes Abs Auto 0.02 K/uL (0.00-0.30); Immature Granulocytes Pct Auto 0.4 %; Lymphocytes Percent Auto 16.8 % (20-44); Mean Corpuscular HGB Conc 34 gm/dL (32-36); Mean Corpuscular Hemoglobin 36 pg (26-34); Mean Corpuscular Volume 105 fL (80-100); Monocytes Percent Auto 14.9 % (0.0-11.0); Neutrophils Absolute Auto 3.49 K/uL (1.7-7.0); Neutrophils Percent Auto 67.5 % (42.0-72.0); Platelet Count* 106 K/uL (140-440); RDW Coefficient of Variation % 14.2 % (11.5-15.5); Red Blood Count 3.49 m/uL (4.30-5.90); White Blood Count* 5.17 K/uL (4.50-11.00)
[2023-06-10 08:17] LABS: Slide Review Reflex No
[2023-06-10 08:29] VITALS: BP 112/79; PULSE 90; RESP 16; TEMP 36.3
[2023-06-10 08:30] LABS: Chloride* 102 mmol/L (96-114); Potassium* 3.8 mmol/L (3.6-5.1); Sodium* 138 mmol/L (135-149)
[2023-06-10 08:32] LABS: Anion Gap 5 mEq/L (7-15); Bilirubin Total* 0.6 mg/dL (0.1-1.5); Carbon Dioxide* 31 mmol/L (20-32); Creatinine* 0.4 mg/dL (0.5-1.5); Est. Creatinine Clearance* 51.39; Estimated Glomerular Filt Rate 119 ml/min
[2023-06-10 08:33] LABS: Alanine Aminotransferase* 32 U/L (4-50); Alkaline Phosphatase* 126 U/L (40-150); Aspartate Amino Transferase* 44 U/L (12-35); Blood Urea Nitrogen* 11 mg/dL (7-30); Glucose* 145 mg/dL (60-115); Total Protein* 7.9 g/dL (6.0-8.3)
[2023-06-10 08:34] LABS: Calcium* 9.5 mg/dL (8.4-10.6)
[2023-06-10] MEDS: NIVOLUMAB 240 MG, TUBING PRIMARY 1 EACH, In-line 0.2 micron filter set 1 EACH in 0.9 % ... 248 MG IVPB (10:28)
[2023-06-10] MEDS: PALONOSETRON 0.25 MG/5 ML inj IV (11:01)
[2023-06-10] MEDS: dexAMETHasone 20 MG in 0.9 % SODIUM CHLORIDE 100 ml 100 ML 408 MG IVPB (11:01)
[2023-06-10] MEDS: SODIUM CHLORIDE 0.9 % (FLUSH) 10 ML SYRINGE IVF (12:47)
[2023-06-12 01:18] LABS: Cortisol, Serum 13.3 ug/dL
[2023-06-12 13:31] VITALS: BP 128/69; PULSE 117; RESP 22; TEMP 36.5; O2SAT 91
[2023-06-12] MEDS: HEPARIN 500 UNIT/5 ML SYRINGE IVF (14:01)
[2023-06-12] MEDS: SODIUM CHLORIDE 0.9 % (FLUSH) 10 ML SYRINGE IVF (14:02)
--- NOTE | 2023-06-18 14:26 | URNOTE ---
Received request for prior authorization for: Carboplatin ([id number]), Paclitaxel ([id number]), Nivolumab ([id number]), Auth# [id number], Date range: 06/17/2023 to 06/22/2024, Aloxi ([id number]), Auth# [id number], Date range: 06/18/2023 to 06/16/2024, Zoledronic Acid ([id number]), Auth# [id number], Date range: 06/17/2023 to 12/14/2023. Per Yar[place] on behalf of of [place], these have been approved.
== END 2023-06-29 23:59 | disposition home or self-care (01) ==
LOC: CCIC 13:30
PROVIDERS: Clinical Nurse Specialist; PCP Physician Assistant Medical; Referring Provider Physician Assistant Medical; Visit Provider Internal Medicine Hematology & Oncology
DX: C15.5 Malignant neoplasm of lower third of esophagus (principal); C79.51 Secondary malignant neoplasm of bone; D69.59 Other secondary thrombocytopenia; T45.1X5A Adverse effect of antineoplastic and immunosuppressive drugs, initial encounter
CPT/HCPCS: 36415; 36591; 80053; 82533; 84443; 85025; 96368; 96376; 96411; 96413; 96415; 96416; 96417; 99211; 99212; 99213; 99214; 99215; J0640; J1100; J1642; J2469; J3489; J7050; J9190; J9263; J9299